=== PATIENT | female | born 1950 | race Caucasian/White ===

== ENCOUNTER 2018-02-08 05:25 | Inpatient (IN) ==
[~2018-02-08 05:25] MED LIST: Calcium Chloride Inj 1 GM/10 ML Syringe IV.CONT ONE; DOPamine 800 MG/500 ML Premix 800 MG/500 ML PLAST..BAG IV.CONT ONE; Metoprolol Tartrate 25 MG Tablet PO SCH; Sodium Bicarbonate 8.4% Inj 50 MEQ/50 ML Syringe IV.CONT ONE
[2018-02-08] MEDS ORDERED: Dextrose 50% in Water 50 ML Vial IV.PUSH PRN ×3 (05:49→13:05)
[2018-02-08] MEDS ORDERED: Chlorhexidine 4% Topical 120 APPLIC/120 ML Bottle TOPICAL SCH ×2 (06:00→08:30)
[2018-02-08] MEDS ORDERED: Chlorhexidine Gluconate 2% 1 Pack (2 Cloths) TOPICAL SCH (06:00)
[2018-02-08] MEDS ORDERED: Sodium Chloride 0.9% Irr Bot 1,000 ML, Vancomycin Inj 1,000 MG IRRIGATION SCH ×2 (06:00)
[2018-02-08] MEDS ORDERED: Sodium Chlor 0.9% Inj 77.5 ML, Papaverine Inj 60 MG, Nitroglycerin Inj 100 MCG, dilTIAZ... IRRIGATION SCH ×6 (06:00→08:30)
[2018-02-08] MEDS ORDERED: Heparin 10,000 UNITS/10 ML Vial (for IV use) ONE (08:00)
[2018-02-08] MEDS ORDERED: Calcium Chloride Inj 1 GM/10 ML Syringe ONE (08:00)
[2018-02-08] MEDS ORDERED: Potassium Chlor 40 mEq Premix 40 MEQ/100 ML PIGGYBACK ONE (08:00)
[2018-02-08] MEDS ORDERED: Albumin Human 25% Inj 50 ML IV.SIG ONE (08:03)
[2018-02-08] MEDS ORDERED: Heparin - SQ 10,000 UNITS/ML Vial ONE (08:16)
[2018-02-08] MEDS ORDERED: MethylPREDNISolone Sod Succinate Inj 125 MG/2 ML Vial ONE (08:16)
[2018-02-08] MEDS ORDERED: Insulin Regular (For Infusion) 100 UNIT in Sodium Chlor 0.9% Inj 99 ML IV.CONT PRN ×2 (08:18→13:05)
[2018-02-08] MEDS ORDERED: Vancomycin Inj 1,250 MG in Sodium Chlor 0.9% Inj 250 ML IV.SIG SCH (09:00)
[2018-02-08] MEDS ORDERED: Vancomycin Inj 1,250 MG in Sodium Chlor 0.9% Inj 250 ML IV.SIG ONE (09:00)
[2018-02-08] MEDS ORDERED: Dexmedetomidine Inj 200 MCG/2 ML Vial IV.CONT ONE (12:00)
[2018-02-08] MEDS ORDERED: Protamine Sulfate Inj 250 MG/25 ML Vial IV.CONT ONE (12:00)
[2018-02-08] MEDS ORDERED: Heparin - SQ 10,000 UNITS/ML Vial OTHER ONE (12:00)
[2018-02-08] MEDS ORDERED: Phenylephrine/NS 1000 MCG/10ML Syringe IV.PUSH ONE (12:00)
[2018-02-08] MEDS ORDERED: RESP: Racemic Epinephrine 2.25% 0.5 ML Neb NEB PRN (13:05)
[2018-02-08] MEDS ORDERED: Clevidipine Inj 25 MG/50 ML VIAL IV.CONT PRN (13:05)
[2018-02-08] MEDS ORDERED: Post-op Orders (for Pharmacy) OTHER STA (13:05)
[2018-02-08] MEDS ORDERED: hydrALAZINE HCl Inj 20 MG/ML Vial IV.PUSH PRN (13:05)
[2018-02-08] MEDS ORDERED: Dexmedetomidine Inj 200 MCG in Sodium Chlor 0.9% Inj 48 ML IV.CONT PRN (13:05)
[2018-02-08] MEDS ORDERED: fentaNYL Citrate Inj 100 MCG/2 ML Ampul IV.PUSH PRN (13:05)
[2018-02-08] MEDS ORDERED: Metoprolol Inj 5 MG/5 ML Vial IV.PUSH PRN (13:05)
[2018-02-08] MEDS ORDERED: Calcium Chloride Inj 1 GM in Sodium Chlor 0.9% Inj 100 ML IV.SIG PRN (13:05)
[2018-02-08] MEDS ORDERED: Calcium Chloride Inj 1 GM/10 ML Syringe IV.PUSH PRN (13:05)
[2018-02-08] MEDS ORDERED: Albumin Human 5% Inj 250 ML IV.SIG PRN (13:05)
[2018-02-08] MEDS ORDERED: Potassium Chlor 20 mEq Premix 20 MEQ/100 ML PIGGYBACK IV.SIG PRN ×2 (13:05)
[2018-02-08] MEDS ORDERED: Magnesium Sulfate Inj 2 GM in Sodium Chlor 0.9% Inj 96 ML IV.SIG PRN ×4 (13:05)
--- NOTE | 2018-02-08 13:22 | P.OP ---
- Preoperative Diagnosis (1) Aortic stenosis (2) CAD (coronary artery disease) (3) Diastolic heart failure - Postoperative Diagnosis (1) Aortic stenosis (2) CAD (coronary artery disease) (3) Diastolic heart failure Date of procedure: 02/08/18 Procedure: AVR with a 21 Intuity tissue valve CABG x 1 SNEED to LAD BROOKS Implants: 21 Intuity tissue valve Anesthesia: GETA Surgeon: Natalie Gold MD Photo Mask Inspector: Peggy Delgado Pathology: other (aortic valve fragments) Operation and Findings: Cross-clamp time 64 minutes Cardiopulmonary bypass time 89 minutes Drains 36 Slovak mediastinum and 32 Slovak left pleural chest tubes Findings: The patient had a heavily calcified aortic valve with fusion of the right and left cusps. The LAD target was deeply intramyocardial. At the conclusion of the procedure, intraoperative BROOKS showed a well-seated aortic valve with no perivalvular leaks. Left ventricular function was normal. Disposition: The patient was transferred to the CVICU in stable, but guarded condition. Operation in detail: After adequate general anesthesia, the patient was prepped and draped in the usual manner. A median sternotomy was performed and electrocautery was used to obtain hemostasis. Left internal mammary artery was procured as a pedicle from the 7th ribs to the 1st rib in the usual manner. The pericardium was opened and the distal mammary artery was instrumented for anastomosis after adequate heparinization for cardiopulmonary bypass. The heart was instrumented for cardiopulmonary bypass in the usual manner. Antegrade Custodiol cardioplegia was used. The left ventricle was vented through the right superior pulmonary vein. The patient was placed on cardiopulmonary bypass and LAD was intramyocardial. An aortic cross-clamp was applied and the heart was arrest is using cold Custodiol antegrade cardioplegia. After adequate arrest , the distal LAD was opened with a [place] blade and found to be a 1-1/2 millimeters good. The left internal mammary artery was approximated to the LAD using a running 7 0 Prolene suture. The pedicle was tacked to the epicardium using interrupted 5 0 silk suture. The aorta was vented and opened above the sinotubular ridge. The valve was found to be heavily calcified. Aortic valve was excised sharply and the annulus was decalcified using rongeurs. The LV was copiously irrigated. The annulus was sized to a 21 Intuity bioprosthetic valve which was seated using interrupted 2-0 Tycron sutures and balloon deployed. After seating the valve and securing the sutures, the aorta was repaired in 2 layers using running 4-0 Prolene suture. The patient was placed in steep Trendelenburg position and received a hotshot doses of warm blood cardioplegia. The aorta and left ventricle were vented and the aortic cross- clamp was removed for a total cross-clamp time of 64 minutes. The heart resumed a bradycardic rhythm which eventually converted to a sinus rhythm after several minutes. The heart was filled allowed to eject. The aortic valve replacement was then assessed by intraoperative BROOKS. The valve was found to be well seated with no perivalvular leak. Left ventricular function was noted to be normal. The patient was weaned from cardiopulmonary bypass for total bypass run of 89 minutes. Protamine was administered to reverse the heparin and all cannulae were removed without incident. A 36 Slovak mediastinal/ 32 Slovak left pleural chest tubes were positioned and each was secured to the skin with a 0 silk suture. The operative field was then examined again for hemostasis which was obtained using electrocautery. The wound was then closed in layers by approximating the sternal tables with interrupted number 6 stainless steel wires following which the presternal fashion was approximately around a 1. PDS suture. The wound was copiously irrigated. The subcutaneous tissue was approximated using a running 2-0 Vicryl suture and the skin was approximated with running 4-0 Monocryl subcuticular stitch. All sponge and instrument counts were correct at the close of the procedure and the patient was transported the CVICU in stable, but guarded condition. Natalie Gold M.D., F.A.C.C., F.A.C.S.
--- NOTE | 2018-02-08 14:19 | XR ---
EXAM DATE: 02/08/2018 2:12 PM EDT AGE/SEX: 67 years / Female INDICATIONS: Post CABG CLINICAL DATA: This is the patient's subsequent encounter. Patient reports that signs and symptoms h ave been present for 2 days and indicates a pain score of Nonresponsive. MEDICAL/SURGICAL HISTORY: . Hypothyroidism. Anxiety. Aortic stenosis. Hyperlipidemia. Thyroid cancer None. COMPARISON: [facility] – [place], CHEST 1V SINGLE AP, 02/02/2018. . FINDINGS: A single AP view of the chest demonstrates the lungs to be symmetrically aerated without evidence of mass, infiltrate or effusion. Status post CABG. Mediastinal and left-sided chest tube. No pneumothora x. Right jugular central line with tip at the cavoatrial junction. Endotracheal tube with tip 4.5 cm above the blu. Nasogastric tube with tip in stomach. The cardiomediastinal contours are unremarkab le. Osseous structures are intact. CONCLUSION: Status post CABG with support lines and tubes as described above. Electronically signed by: Rico Tanner MD 02/08/2018 2:18 PM EDT
[2018-02-08] MEDS ORDERED: fentaNYL Citrate Inj 250 MCG/5 ML Ampul ONE (14:30)
[2018-02-08] MEDS ORDERED: Albumin Human 5% Inj 250 ML IV.SIG ONE (14:39)
[2018-02-08] MEDS ORDERED: DOPamine 800 MG/500 ML Premix 800 MG/500 ML PLAST..BAG IV.CONT PRN (15:10)
[2018-02-08] MEDS ORDERED: Hydrocortisone Sod Succinate 100 MG Vial ONE (15:20)
[2018-02-08 15:29] LABS: Activated Partial Thrombo Time 28.9 sec (24.3-30.1); INR 1.4 Ratio
[2018-02-08] MEDS: Phenylephrine Inj 40 MG in Dextrose 5% in Water Inj 496 ML IV.CONT PRN ×2 (15:30)
--- NOTE | 2018-02-08 15:30 | P.PNCV ---
- Note Subjective/Hospital Course: A 67-year-old female initially seen 02/02/18 with history of known heart murmur for a number of years, had a new primary care physician and told the nurse practitioner that she apparently had a murmur and they felt that it was more prominent so they sent her for an echocardiogram. The echocardiogram showed severe aortic stenosis with a valve mean gradient of 84 mmHg, aortic valve area 0.52, mild tricuspid valve regurgitation and mild mitral valve regurgitation. Ejection fraction is 60%. She underwent cardiac catheterization for further evaluation. The proximal LAD was 75% stenosed, the circumflex 20%. We were consulted to evaluate for coronary artery bypass graft x 1, possibly 2, with aortic valve replacement. PAST MEDICAL HISTORY: Includes hypertension, hyperlipidemia, anxiety, history of thyroid cancer. 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 02/08 pt electively admitted surgery: AVR with a 21 Intuity tissue valve, CABG x 1, SNEED to LAD, BROOKS Objective: Vital Signs - 24 hr 02/08/18 06:20 02/08/18 13:04 02/08/18 13:50 Temperature 98.1 F 98.8 F Pulse Rate 68 71 Respiratory Rate 18 10 L 11 L Blood Pressure 118/76 105/55 L Pulse Oximetry 94 L 100 98 02/08/18 14:00 02/08/18 14:15 02/08/18 14:22 Temperature 98.7 F Pulse Rate 68 71 Respiratory Rate 14 Blood Pressure 106/50 L Pulse Oximetry 99 99 Labs: Laboratory Results - last 12 hr 02/08/18 02/08/18 02/08/18 06:00 06:00 09:59 Blood Type O Positive Blood Type Recheck Not needed Antibody Screen Negative MTS Gel Crossmatch See Detail Bld Prod Order Comment
[2018-02-08] MEDS: DOBUTamine 250 MG/250 ML Premx 250 MG/250 ML BAG IV.CONT SCH (16:00)
[2018-02-08] MEDS ORDERED: Vasopressin Inj 40 UNIT in Dextrose 5% in Water Inj 98 ML IV.CONT PRN ×2 (16:08)
--- NOTE | 2018-02-08 16:20 | XR ---
EXAM DATE: 02/08/2018 4:09 PM EDT AGE/SEX: 67 years / Female INDICATIONS: Post CABG CLINICAL DATA: This is the patient's subsequent encounter. Patient reports that signs and symptoms h ave been present for 1 day and indicates a pain score of Nonresponsive. MEDICAL/SURGICAL HISTORY: . Hypothyroidism. Anxiety. Aortic stenosis. Hyperlipidemia. Thyroid c ancer None. COMPARISON: [facility] – [place], CHEST 1V SINGLE AP, 02/08/2018. . FINDINGS: A single AP view of the chest demonstrates previous CABG. Mediastinal and left-sided chest tubes are stable. Right jugular line, nasogastric tube and endotracheal tube stable in position. No pneumothora x. Lungs relatively clear. The cardiomediastinal contours are unremarkable. Osseous structures are intact. CONCLUSION: Status post CABG. No change. Electronically signed by: Rico Tanner MD 02/08/2018 4:19 PM EDT
[2018-02-08 16:23] LABS: VBG Base Excess -3.5 mmol/L (-2-2); VBG Blood Gas Oxygen Content 12.7 Vol % (9.0-17.0); VBG PCO2 66 mmHG (44-48); VBG PH 7.18 (7.360-7.400); VBG PO2 56 mmHG (35-40)
--- NOTE | 2018-02-08 16:31 | P.PNCV ---
- Note Subjective/Hospital Course: A 67-year-old female initially seen 02/02/18 with history of known heart murmur for a number of years, had a new primary care physician and told the nurse practitioner that she apparently had a murmur and they felt that it was more prominent so they sent her for an echocardiogram. The echocardiogram showed severe aortic stenosis with a valve mean gradient of 84 mmHg, aortic valve area 0.52, mild tricuspid valve regurgitation and mild mitral valve regurgitation. Ejection fraction is 60%. She underwent cardiac catheterization for further evaluation. The proximal LAD was 75% stenosed, the circumflex 20%. We were consulted to evaluate for coronary artery bypass graft x 1, possibly 2, with aortic valve replacement. PAST MEDICAL HISTORY: Includes hypertension, hyperlipidemia, anxiety, history of thyroid cancer. 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 02/08 pt electively admitted surgery: AVR with a 21 Intuity tissue valve, CABG x 1, SNEED to LAD, BROOKS 16:20 Called to see patient at approximately 1500 for acute hypotensive episode. She had a respiratory acidosis when she arrived from the OR which has not completely resolved. I emergently Called Dr. Du for a consultation and have been actively resuscitating her subsequently. She has required pressors and does not have a pericardial effusion or any finding which warrants returning her to the OR. I did call the OR emergently and have the CVOR on standby until she is more stable or needs to return to the OR. I suspect she had a hemodynamic spiral with low BP and relatively low coronary perfusion pressure in the face of marked LVH and now, the absence of aortic stenosis. She has become more stable in the last 15-20 minutes. If she has further compromise, I plan toplace a IABP +/-, BROOKS, and possible re-explore her. I have communicated all this with her family. Objective: Vital Signs - 24 hr 02/08/18 06:20 02/08/18 13:04 02/08/18 13:50 Temperature 98.1 F 98.8 F Pulse Rate 68 71 Respiratory Rate 18 10 L 11 L Blood Pressure 118/76 105/55 L Pulse Oximetry 94 L 100 98 02/08/18 14:00 02/08/18 14:15 02/08/18 14:22 Temperature 98.7 F Pulse Rate 68 71 Respiratory Rate 14 Blood Pressure 106/50 L Pulse Oximetry 99 99 02/08/18 15:55 Temperature Pulse Rate 134 H Respiratory Rate 14 Blood Pressure Pulse Oximetry Labs: Laboratory Results - last 12 hr 02/08/18 02/08/18 02/08/18 06:00 06:00 09:59 PT INR APTT Fibrinogen Blood Type O Positive Blood Type Recheck Not needed Antibody Screen Negative MTS Gel Crossmatch See Detail Bld Prod Order Comment 02/08/18 02/08/18 02/08/18 14:40 14:40 15:42 PT 14.0 H INR 1.4 APTT 28.9 Fibrinogen 144 L Blood Type Blood Type Recheck Antibody Screen MTS Gel Crossmatch See Detail Bld Prod Order Comment Imaging: Chest X-Ray 02/08/18 15:52 CONCLUSION: Status post CABG. No change. Cardiovascular: Currently, RRR with no murmurs Telemetry: aberrant SVT with conversion to sinus rhythm. Pulmonary: few crackles bilat Incision: dry and intact CT: 330ml since returning from the OR Continue hemodynamic support Vent wean as tolerated Critical care management per Dr. uD Return to OR if indicated.
--- NOTE | 2018-02-08 16:57 | P.CONCC ---
History of Present Illness Service: critical care Consult date: 02/08/18 Requesting Physician: Natalie Gold Reason for Consult: Severe refractory shock Primary Care Provider: Frank Jacobsen MD Chief Complaint: Post CABG and AVR, now with refractory shock History of Present Illness: A 67-year-old female with history of known heart murmur, COPD, hypertension, hyperlipidemia, anxiety, history of thyroid cancer who was seen by CTS for CABG and AVR. Her Echo showed severe aortic stenosis with a valve mean gradient of 84 mmHg, aortic valve area 0.52, EF is 60%. Cardiac catheterization showed proximal LAD 75% stenosed. She was electively admitted today and underwent AVR with a 21 Intuity tissue valve, CABG x 1, SNEED to LAD. Intraoperatively was hemodynamically stable per Dr. Haji I was called emergently to the CV ICU at [address] Haji as the patient was profoundly hypotensive. I immediately evaluated the patient, she was already started on norepinephrine. On my arrival patient was profoundly hypotensive and had already received 3 L of IV fluid boluses. ABG showed combined predominantly respiratory acidosis, but also and metabolic acidosis. Patient was given 2 Amps of bicarb and total 2 g of IV calcium. Based on ABG hemoglobin of 7.9, patient was given 2 units of PRBC. Continues to be hypotensive started on dopamine and increased to 10 mcg/kg/min. Levophed was gradually increased to 15 mcg/min. Bedside echo was difficult to visualize wall motion but the EF appeared approximately 40%. There was significant lateral and inferior ST depressions on EKG. Epinephrine was started and increased to 7 mcg/min. Evaluated the LV with regular echocardiogram stat. Mclean were better visualized it appears like LVEF approximately 45% while on multiple pressors, LV cavity was small, no pericardial effusion. We both agreed there is no benefit in reexploration at this time. We did consider IABP if she remains in cardiogenic shock. Further fluid resuscitation carried out. Patient started to stabilize and to avoid continuous tachycardia epinephrine was started to be weaned off. A slow bolus of amiodarone 150 mg over 1 hour was started. Review of Systems unobtainable due to endotracheal tube PMFSH - History History Provided By: Patient - Medical / Surgical Hx Neg / Unobtainable Medical Problems Denied: Unable to Obtain - Medical History Medical History: Medical History (Last Updated 02/02/18 @ 07:14 by Cesia Tovar RN) Anxiety Aortic stenosis HLD (hyperlipidemia) Hypothyroid Thyroid cancer - Tobacco History Tobacco Use In Past 30 Days: Yes Smoking Status: Current every day smoker Tobacco Type: Cigarettes - Alcohol History How Often Do You Have a Drink Containing Alcohol: Never - Substance Use History Substance History: No History of Abuse - Travel History Recent Travel in the [facility] Within the Last 8 Weeks: No Medications and Allergies Active Medications: Active Medications Albuterol (Duoneb Neb (Prn)) 1 ampul NEB Q2HR NEB PRN PRN Reason: WHEEZING Last Admin: 02/08/18 16:45 Dose: 1 ampul Albuterol (Duoneb Neb (Keyla)) 1 ampul NEB Q6HR NEB KEYLA Last Admin: 02/08/18 15:52 Dose: 1 ampul Alprazolam (Xanax) 0.5 mg PO BID KEYLA Aspirin (Aspirin Chew) 81 mg PO DAILY KEYLA Aspirin (Ecotrin) 81 mg PO DAILY KEYLA Calcium Chloride (Calcium Chloride Inj) 0.5 gm IV.PUSH UNSCH PRN PRN Reason: SEE LABEL COMMENTS Chlorhexidine Gluconate (Hibiclens 4% Topical) 1 applicatio TOPICAL E[employer] [facility] Stop: 02/14/18 05:49 Chlorhexidine Gluconate (Chlorhexidine 2% Cloth) 3 pack TOPICAL [employer] [facility] Stop: 02/11/18 05:48 Last Admin: 02/08/18 05:30 Dose: 3 pack Sodium Chloride 77.5 ml/Papaverine HCl 60 mg/Nitroglycerin 100 mcg/Diltiazem HCl 100 mg 0 ml IRRIGATION [employer] [facility] Stop: 02/14/18 05:49 Last Admin: 02/08/18 11:02 Dose: 1 irrig.soln Sodium Chloride 1,000 ml/ (Vancomycin HCl 1,000 mg) 0 ml IRRIGATION [employer] [facility] Stop: 02/14/18 05:50 Dextrose (D50w Vial) 50 ml IV.PUSH UNSCH PRN PRN Reason: PER HYPOGLYCEMIA PROTOCOL Dextrose (D50w Vial) 50 ml IV.PUSH UNSCH PRN PRN Reason: PER HYPOGLYCEMIA PROTOCOL Epinephrine (Racepinephrine 2.25% Neb) 0.5 ml NEB DAILY NEB PRN PRN Reason: STRIDOR Fentanyl Citrate (Fentanyl Inj) 25 mcg IV.PUSH Q1H PRN PRN Reason: BREAKTHROUGH PAIN Hydralazine HCl (Apresoline Inj) 10 mg IV.PUSH Q4H PRN PRN Reason: SEE LABEL COMMENTS Lactated Ringer's (Lr 1000 Ml Inj) 1,000 mls @ 30 mls/hr IV.SIG .Q24H KEYLA Stop: 02/09/18 16:19 Last Infusion: 02/08/18 09:30 Dose: Infused Acetaminophen (Ofirmev Inj) 1,000 mg in 100 mls @ 400 mls/hr IV.SIG Q6H KEYLA Stop: 02/09/18 08:14 Albumin Human (Buminate 5% Inj) 250 mls @ 250 mls/hr IV.SIG UNSCH PRN PRN Reason: SEE LABEL COMMENTS Calcium Chloride 1 gm/ Sodium (Chloride) 110 mls @ 100 mls/hr IV.SIG PRN PRN PRN Reason: SEE LABEL COMMENTS Clevidipine (Cleviprex Inj) 25 mg in 50 mls @ 2 mls/hr IV.CONT TITRATE PRN; Protocol PRN Reason: Per protocol Dexmedetomidine HCl 200 mcg/ (Sodium Chloride) 50 mls @ 4.06 mls/hr IV.CONT TITRATE PRN; Protocol PRN Reason: Per Protocol Insulin Human Regular 100 unit (/ Sodium Chloride) 100 mls @ 3 mls/hr IV.CONT TITRATE PRN; Protocol PRN Reason: See Protocol Lactated Ringer's (Lr 1000 Ml Inj) 500 mls @ 500 mls/hr IV.SIG .Q1H PRN PRN Reason: SEE LABEL COMMENTS Magnesium Sulfate Inj 2 gm/ (Sodium Chloride) 100 mls @ 50 mls/hr IV.SIG PRN PRN PRN Reason: SEE LABEL COMMENTS Magnesium Sulfate Inj 2 gm/ (Sodium Chloride) 100 mls @ 50 mls/hr IV.SIG PRN PRN PRN Reason: SEE LABEL COMMENTS Potassium Chloride (Kcl 20 Meq Premix Inj) 20 meq in 100 mls @ 50 mls/hr IV.SIG PRN PRN PRN Reason: SEE LABEL COMMENTS Potassium Chloride (Kcl 20 Meq Premix Inj) 20 meq in 100 mls @ 50 mls/hr IV.SIG PRN PRN PRN Reason: SEE LABEL COMMENTS Vancomycin HCl 1,000 mg/ (Sodium Chloride) 250 mls @ 250 mls/hr IV.SIG Q12H KEYLA Stop: 02/09/18 14:59 Potassium Chloride (Kcl 20 Meq Premix Inj) 20 meq in 100 mls @ 50 mls/hr IV.SIG PRN PRN PRN Reason: SEE LABEL COMMENTS Dopamine HCl/Dextrose (Dopamine 800 Mg/500 Ml Premix) 800 mg in 500 mls @ 9.146 mls/hr IV.CONT TITRATE PRN; Protocol PRN Reason: Per Protocol Dobutamine HCl/Dextrose (Dobutamine 250 Mg/250 Ml Premx) 250 mg in 250 mls @ 12.195 mls/hr IV.CONT .[id number] KEYLA Norepinephrine Bitartrate (Levophed-Dextrose 4 Mg/250 Ml Drip) 4 mg in 250 mls @ 7.5 mls/hr IV.SIG TITRATE PRN; Protocol PRN Reason: Per Protocol Vasopressin 40 unit/ Dextrose 100 mls @ 1.5 mls/hr IV.CONT TITRATE PRN; Protocol PRN Reason: Per Protocol Phenylephrine HCl 40 mg/ (Dextrose) 500 mls @ 30 mls/hr IV.CONT TITRATE PRN; Protocol PRN Reason: Per Protocol Levothyroxine Sodium (Synthroid) 25 mcg PO DAILY@0600 [facility] Metoprolol Tartrate (Lopressor Inj) 2.5 mg IV.PUSH Q1H PRN PRN Reason: SEE LABEL COMMENTS Ondansetron HCl (Zofran Inj) 4 mg IV.PUSH Q6H PRN PRN Reason: NAUSEA OR VOMITING Oxycodone/Acetaminophen (Percocet 5/325 Mg) 1 tab PO Q3H PRN PRN Reason: PAIN SCALE 1 TO 5 Pantoprazole Sodium (Protonix) 40 mg PO DAILY@06 [facility] Phenylephrine HCl (Neosynephrine Inj) 0.1 mg IV.PUSH UNSCH PRN PRN Reason: SEE LABEL COMMENTS Potassium Chloride (K-Dur) 20 meq PO UNSCH PRN PRN Reason: SEE LABEL COMMENTS Potassium Chloride (K-Dur) 40 meq PO UNSCH PRN PRN Reason: SEE LABEL COMMENTS Povidone Iodine (Betadine 5% Antisepsis Kit) 1 applicatio EACH NARE [employer] OPERATOR [facility] Stop: 02/11/18 05:48 Last Admin: 02/08/18 06:00 Dose: 1 applicatio Pravastatin Sodium (Pravachol) 20 mg PO HS [facility] Sodium Bicarbonate (Sodium Bicarbonate 8.4% Inj) 50 meq IV.PUSH UNSCH PRN PRN Reason: SEE LABEL COMMENTS Sodium Bicarbonate (Sodium Bicarbonate 8.4% Inj) 100 meq IV.PUSH UNSCH PRN PRN Reason: SEE LABEL COMMENTS Sodium Chloride (Ns Flush) 2 ml IV.FLUSH BID KEYLA Sodium Chloride (Ns Flush) 2 ml IV.FLUSH PRN PRN PRN Reason: FLUSH AFTER USING IV ACCESS Sodium Chloride (Ns Flush) 2 ml IV.FLUSH BID KEYLA Sodium Chloride (Ns Flush) 2 ml IV.FLUSH PRN PRN PRN Reason: FLUSH AFTER USING IV ACCESS Terbutaline Sulfate (Brethine Inj) 1 mg SQ UNSCH PRN PRN Reason: For Extravasation Vitamin D (Vitamin D3) 1,000 unit PO DAILY KEYLA Allergies Allergy/AdvReac Type Severity Reaction Status Date / Time bee venom protein (honey bee) Allergy Edema, Verified 02/08/18 06:03 [Bee sting] Localized metronidazole [From Flagyl] Allergy Hives Verified 02/08/18 06:03 Penicillins Allergy Hives Verified 02/08/18 06:03 Home Medications Medication Instructions Recorded Confirmed Type alprazolam 0.5 mg PO BID 02/02/18 02/08/18 History aspirin [Aspir-81] 81 mg PO DAILY 02/02/18 02/08/18 History atenolol 50 mg PO DAILY 02/02/18 02/08/18 History cholecalciferol (vitamin D3) 1,000 unit PO DAILY 02/02/18 02/08/18 History [Vitamin D3] hydrochlorothiazide 25 mg PO DAILY 02/02/18 02/08/18 History levothyroxine 25 mcg PO DAILY 02/02/18 02/08/18 History levothyroxine 200 mcg PO DAILY 02/02/18 02/08/18 History lovastatin 20 mg PO HS 02/02/18 02/08/18 History potassium mcg PO EVERY OTHER DAY 02/02/18 02/02/18 History Physical Exam Vital signs: Vital Signs 02/08/18 06:20 02/08/18 13:04 02/08/18 13:50 Temperature 98.1 F 98.8 F Pulse Rate 68 71 Respiratory Rate 18 10 L 11 L Blood Pressure 118/76 105/55 L Pulse Oximetry 94 L 100 98 02/08/18 14:00 02/08/18 14:15 02/08/18 14:22 Temperature 98.7 F Pulse Rate 68 71 Respiratory Rate 14 Blood Pressure 106/50 L Pulse Oximetry 99 99 02/08/18 15:55 02/08/18 16:46 Temperature Pulse Rate 134 H 63 Respiratory Rate 14 18 Blood Pressure Pulse Oximetry Intake & Output 02/07/18 02/08/18 02/08/18 18:59 06:59 18:59 Intake Total 5547.5 / 5547.5 Output Total 2049 / 2049 Balance 3497.5 / 3497.5 Weight 81.3 kg Intake: IV 1262.5 / 1262.5 LR 1000 mL Inj 1,000 ML @ 30 1000 / 1000 mls/hr IV.SIG .Q24H KEYLA Rx#: [id number] Vancomycin Inj 1,250 MG In NS 262.5 / 262.5 Inj 250 ML @ 250 mls/hr IV.SIG ONCE ONE Rx#:[id number] Anesthesia Amount 1700 / 1700 Intake (Blood Product) Amt 1085 / 1085 Plt Pheresis B Leukoreduced 285 / 285 Unit [id number] Rbc As-3 Leukoreduced Unit 400 / 400 [id number] Rbc As-3 Leukoreduced Unit 400 / 400 [id number] Cell Saver Amount 1500 / 1500 Output: Estimated Blood Loss 1500 / 1500 Urine Amount (Catheter) 550 / 550 Indwelling Temp Sensing 550 / 550 Catheter Other: Weight On Admission 81.3 kg Narrative: GENERAL: Post CABG patient who is on the ventilator minimally responsive profoundly hypotensive HEENT: Shows pupils reactive to light and accommodation. Orotracheally intubated NECK: Right-sided introducer in place LUNGS: Air entry equal with bilateral expiratory wheezing. Chest tube with sanguinous output CARDIOVASCULAR: Profoundly hypotensive currently on Levophed at 15 mcg/min, dopamine 5 mcg/kg/min, epinephrine 5 mcg/min. Midline CABG incision dressing, wound VAC intact ABDOMEN: Nontender, nondistended. EXTREMITIES: Good peripheral pulses. NEUROLOGIC: Waxing and waning level of consciousness. Patient is responsive when MAP is above 65 - Urinary Catheter Management Indwelling Temp Sensing Catheter Cath placed during this visit: yes Reason for continuing: Hourly intake/output Insertion date: 02/08/18 Insertion time: 09:06 Septic Shock Reassessment Septic shock perfusion: reassessment completed Assessment and Plan - Assessment and Plan Plan: ASSESSMENT: Profound refractory shock Acute hypercarbic respiratory failure Acute COPD exacerbation Respiratory acidosis Anemia requiring transfusion Atrial fibrillation with rapid ventricular response Status post CABG and AVR PLAN: NEURO: -No sedation or pain medication at this time due to profound hypotension RESP: -[id number] breathing treatments with DuoNeb x3 -DuoNeb every 4 hours scheduled and as needed -Hemodynamically unstable at this time for SBT CV: -Normal saline IV fluids 4L bolus, 2 units of blood, 2 of albumin -Currently on Levophed 50 mcg/min, dopamine 10 mcg/kg/min, epinephrine 7 mcg/kg/ min -Currently in atrial fibrillation with RVR heart rate up to 140s -Start Ehsan-Synephrine to attempt wean epinephrine, in an attempt to avoid tachycardia -Patient's LV appeared empty with thick mclean EF approximately 45% -Continue fluid resuscitation -Amiodarone 150 mg slow bolus over 1 hour and continued infusion, to convert to sinus rhythm -We consider reexploration and IABP but it appears like her hypotension due to combination of severe respiratory acidosis, and hypovolemia on underlying hypertrophic cardiomyopathy GI: -N.p.o., IV Protonix : -Monitor renal function closely. Chaudhari catheter. ID: -Maggy operative antibiotics per CTS HEME: -Monitor CBC, coags ENDO: -Electrolyte replacement per protocol -Insulin per CVICU protocol Central line and art line placed in the OR CC time 78 min Code Status: Full Discussed Condition With: Dr. Holm, bedside RN
[2018-02-08] MEDS: Insulin Regular (For Infusion) 100 UNIT in Sodium Chlor 0.9% Inj 99 ML IV.CONT PRN (17:00)
[2018-02-08] MEDS ORDERED: Amiodarone Inj 150 MG in Dextrose 5% in Water Inj 97 ML IV.SIG ONE ×2 (17:10)
[2018-02-08] MEDS ORDERED: Mag Sulf 1 gm/100 ml Premix 100 ML IV.SIG ONE (19:00)
[2018-02-08] MEDS: Vancomycin Inj 1,000 MG in Sodium Chlor 0.9% Inj 250 ML IV.SIG SCH (19:00)
--- NOTE | 2018-02-08 19:15 | ECHRPT ---
Indication: SHORTNESS OF BREATH CONCLUSIONS This was only a limited echo. Poor endocardial visualization and only 4 chamber view obtained. LVEF is 40-55%The right ventricular size is normal. The right ventricular systoilc function is normal. LA size was not measured BP: / HR: Rhythm: Atrial fibrillation Technical Quality:Poor FINDINGS LEFT VENTRICLE Poor endocardial visualization and only 4 chamber view obtained. LVEF is 40-55% RIGHT VENTRICLE The right ventricular size is normal. The right ventricular systoilc function is normal. LEFT ATRIUM LA size was not measured RIGHT ATRIUM The right atrial size is normal. PERICARDIUM No pericardial effusion. Suhas Anderson MD (Electronically Signed) Final Date:08 February 2018 19:15
[2018-02-08] MEDS: Potassium Chlor 20 mEq Premix 20 MEQ/100 ML PIGGYBACK IV.SIG PRN (20:50)
[2018-02-08] MEDS ORDERED: ALPRAZolam 0.5 MG Tablet PO SCH (21:00)
[2018-02-08] MEDS ORDERED: SODIUM CHLOR 0.9% IV.CONT PRN (22:45)
[2018-02-08] MEDS ORDERED: DEXMEDETOMIDINE IV.CONT PRN (22:45)
[2018-02-09] MEDS: Vancomycin Inj 1,000 MG in Sodium Chlor 0.9% Inj 250 ML IV.SIG SCH ×2 (02:00→14:56)
[2018-02-09] MEDS: Potassium Chlor 20 mEq Premix 20 MEQ/100 ML PIGGYBACK IV.SIG PRN ×2 (03:28→04:32)
[2018-02-09] MEDS: Insulin Regular (For Infusion) 100 UNIT in Sodium Chlor 0.9% Inj 99 ML IV.CONT PRN (04:32)
[2018-02-09 05:17] LABS: Hematocrit 38.3 % (35.0-46.0); Hemoglobin 13.3 gm/dL (11.6-15.3); Mean Corpuscular HGB Conc 34.8 % (32.0-36.0); Mean Corpuscular Hemoglobin 31.3 pg (27.0-34.0); Mean Corpuscular Volume 90.1 fL (80.0-100.0); Mean Platelet Volume 11.1 fL (7.0-11.0); Platelet Count 90 th/mm3 (150-450); Red Blood Count 4.25 mil/mm3 (4.00-5.30); Red Cell Distribution Width 13.4 % (11.6-17.2); White Blood Count 17.1 th/mm3 (4.0-11.0)
[2018-02-09 05:32] LABS: Magnesium 1.9 mg/dL (1.5-2.5); Potassium 4.6 meq/L (3.5-5.1)
[2018-02-09] MEDS ORDERED: Mag Sulf 1 gm/100 ml Premix 100 ML IV.SIG ONE (06:32)
[2018-02-09] MEDS: Phenylephrine Inj 40 MG in Dextrose 5% in Water Inj 496 ML IV.CONT PRN ×2 (08:01)
--- NOTE | 2018-02-09 09:13 | XR ---
EXAM DATE: 02/09/2018 8:43 AM EDT AGE/SEX: 67 years / Female INDICATIONS: Post CABG. CLINICAL DATA: This is the patient's subsequent encounter. Patient reports that signs and symptoms h ave been present for 2 days and indicates a pain score of Nonresponsive. MEDICAL/SURGICAL HISTORY: . Hypothyroidism. Anxiety. Aortic stenosis. Hyperlipidemia. Thyroid c ancer CABG. COMPARISON: [facility], CHEST 1V SINGLE AP, 02/08/2018. . FINDINGS: Endotracheal and nasogastric tubes have been removed. Lungs remain well expanded however mild bibasilar airspace disease has developed. Persistent central interstitial vascular prominence is noted. Left-sided chest tube remains in place. There is no evidence of pneumothorax. CONCLUSION: 1. Interval removal of endotracheal and nasogastric tubes 2. Stable left thoracostomy tube without evidence of pneumothorax 3. New bibasilar airspace disease. 4. Mild central congestion. Electronically signed by: Cy Roa MD 02/09/2018 9:12 AM EDT
[2018-02-09] MEDS ORDERED: Sod Phosphate/Sod Biphosphate (Adult) Enema 133 ML Bottle RECTAL PRN (09:30)
[2018-02-09] MEDS ORDERED: Bisacodyl 10 MG Supp RECTAL PRN (09:30)
[2018-02-09] MEDS ORDERED: Dextrose 50% in Water 50 ML Vial IV.PUSH PRN (09:30)
--- NOTE | 2018-02-09 09:48 | P.PNCV ---
- Note Subjective/Hospital Course: A 67-year-old female initially seen 02/02/18 with history of known heart murmur for a number of years, had a new primary care physician and told the nurse practitioner that she apparently had a murmur and they felt that it was more prominent so they sent her for an echocardiogram. The echocardiogram showed severe aortic stenosis with a valve mean gradient of 84 mmHg, aortic valve area 0.52, mild tricuspid valve regurgitation and mild mitral valve regurgitation. Ejection fraction is 60%. She underwent cardiac catheterization for further evaluation. The proximal LAD was 75% stenosed, the circumflex 20%. We were consulted to evaluate for coronary artery bypass graft x 1, possibly 2, with aortic valve replacement. PAST MEDICAL HISTORY: Includes hypertension, hyperlipidemia, anxiety, history of thyroid cancer. 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 02/08 pt electively admitted surgery: AVR with a 21 Intuity tissue valve, CABG x 1, SNEED to LAD, BROOKS 16:20 Called to see patient at approximately 1500 for acute hypotensive episode. She had a respiratory acidosis when she arrived from the OR which has not completely resolved. I emergently Called Dr. Du for a consultation and have been actively resuscitating her subsequently. She has required pressors and does not have a pericardial effusion or any finding which warrants returning her to the OR. I did call the OR emergently and have the CVOR on standby until she is more stable or needs to return to the OR. I suspect she had a hemodynamic spiral with low BP and relatively low coronary perfusion pressure in the face of marked LVH and now, the absence of aortic stenosis. She has become more stable in the last 15-20 minutes. If she has further compromise, I plan toplace a IABP +/-, BROOKS, and possible re-explore her. I have communicated all this with her family. 02/09 pt extubated at 0500 now on 4 liter 02, remains on Ehsan at 40mcq wean off insulin gtt , had episode of Afib, short burst VTach yesterday on amiodarone gtt, ECG shows new L BBB anteroseptal T wave changes received 2 units PRBC and one mike PLT PLT count 90. CXR with some bilateral lower lobe atelectasis , possible infiltrate left lower lobe Keep in ICU today , Objective: Vital Signs - 24 hr 02/08/18 13:04 02/08/18 13:50 02/08/18 14:00 Temperature 98.8 F 98.7 F Pulse Rate 71 68 Respiratory Rate 10 L 11 L 14 Blood Pressure 105/55 L 106/50 L Pulse Oximetry 100 98 99 02/08/18 14:15 02/08/18 14:22 02/08/18 15:00 Temperature 97.5 F L Pulse Rate 71 59 L Respiratory Rate 14 Blood Pressure 83/49 L Pulse Oximetry 99 98 02/08/18 15:55 02/08/18 16:40 02/08/18 16:46 Temperature Pulse Rate 134 H 63 Respiratory Rate 14 18 18 Blood Pressure Pulse Oximetry 100 02/08/18 17:00 02/08/18 17:41 02/08/18 18:29 Temperature Pulse Rate 64 73 Respiratory Rate 20 20 Blood Pressure Pulse Oximetry 99 02/08/18 19:25 02/08/18 20:00 02/08/18 20:42 Temperature 97.6 F Pulse Rate 70 70 Respiratory Rate 22 9 L 20 Blood Pressure 117/64 Pulse Oximetry 99 99 97 02/08/18 21:00 02/08/18 23:12 02/08/18 23:30 Temperature Pulse Rate 68 66 63 Respiratory Rate 20 Blood Pressure Pulse Oximetry 99 02/09/18 00:00 02/09/18 03:55 02/09/18 04:00 Temperature 97.5 F L 97.9 F Pulse Rate 65 67 66 Respiratory Rate 20 28 H 26 H Blood Pressure 118/66 102/58 L Pulse Oximetry 99 99 99 02/09/18 05:10 02/09/18 05:40 02/09/18 07:00 Temperature 99 F Pulse Rate 68 71 Respiratory Rate 16 Blood Pressure 92/51 L Pulse Oximetry 99 93 L 02/09/18 07:58 Temperature Pulse Rate Respiratory Rate 16 Blood Pressure Pulse Oximetry GENERAL: A&O x 3 SKIN: Warm and dry. prevena dressing to chest , HEAD: Normocephalic. EYES: No scleral icterus. No injection or drainage. NECK: Supple, trachea midline. No JVD or lymphadenopathy. CARDIOVASCULAR: Regular rate and rhythm without murmurs, gallops, or rubs. general edema RESPIRATORY: Breath sounds equal bilaterally. No accessory muscle use. chest tube to wall suction, no air leak , diminished in bases GASTROINTESTINAL: Abdomen soft, non-tender, nondistended. MUSCULOSKELETAL: No cyanosis, or edema. BACK: Nontender without obvious deformity. No CVA tenderness. Labs: Laboratory Results - last 12 hr 02/08/18 02/09/18 02/09/18 22:20 00:11 02:46 WBC RBC Hgb Hct MCV MCH MCHC RDW Plt Count MPV Sodium Potassium Chloride Carbon Dioxide Anion Gap BUN Creatinine Estimated GFR POC Glucose 140 H 117 H 109 Random Glucose Calcium Magnesium 02/09/18 02/09/18 02/09/18 04:20 04:20 04:20 WBC 17.1 H RBC 4.25 Hgb 13.3 Hct 38.3 MCV 90.1 MCH 31.3 MCHC 34.8 RDW 13.4 Plt Count 90 L MPV 11.1 H Sodium 145 Potassium 4.6 Chloride 112 H Carbon Dioxide 24.0 Anion Gap 9 BUN 13 Creatinine 0.82 Estimated GFR 70 L POC Glucose 149 H Random Glucose 151 H Calcium 8.0 L Magnesium 1.9 02/09/18 02/09/18 02/09/18 06:50 07:20 08:05 WBC RBC Hgb Hct MCV MCH MCHC RDW Plt Count MPV Sodium Potassium Chloride Carbon Dioxide Anion Gap BUN Creatinine Estimated GFR POC Glucose 116 H 129 H 117 H Random Glucose Calcium Magnesium 02/09/18 09:03 WBC RBC Hgb Hct MCV MCH MCHC RDW Plt Count MPV Sodium Potassium Chloride Carbon Dioxide Anion Gap BUN Creatinine Estimated GFR POC Glucose 121 H Random Glucose Calcium Magnesium Result Diagrams: 02/09/18 04:20 02/09/18 04:20 Telemetry: sinus vielak to junctional rhythm / New L BBB - Plan (1) Hypertension Plan: labile BP on pressors (5) Diastolic heart failure Plan: on pressor, s/p volume resuscitation CVP 10, maintain MAP >65 eval for diuresis in am (7) S/P CABG x 1 Plan: on ASA, statin PT/ OOB later this am pulm toileting leave in CVICU today post ECHO 02/08 EF 40%
[2018-02-09] MEDS: ALPRAZolam 0.5 MG Tablet PO PRN ×2 (11:09→23:57)
[2018-02-09] MEDS: Insulin NovoLOG Aspart Correctional Sugar Inj SQ SCH ×3 (11:20→18:48)
--- NOTE | 2018-02-09 11:27 | P.PNCC ---
Subjective Subjective Remarks/Hospital Course: A 67-year-old female with history of known heart murmur, COPD, hypertension, hyperlipidemia, anxiety, history of thyroid cancer who was seen by CTS for CABG and AVR. Her Echo showed severe aortic stenosis with a valve mean gradient of 84 mmHg, aortic valve area 0.52, EF is 60%. Cardiac catheterization showed proximal LAD 75% stenosed. She was electively admitted today and underwent AVR with a 21 Intuity tissue valve, CABG x 1, SNEED to LAD. Intraoperatively was hemodynamically stable per Dr. Haji. Dr. Du was called emergently to the CV ICU at [address] Haji as the patient was profoundly hypotensive. I immediately evaluated the patient, she was already started on norepinephrine. On my arrival patient was profoundly hypotensive and had already received 3 L of IV fluid boluses. ABG showed combined predominantly respiratory acidosis, but also and metabolic acidosis. Patient was given 2 Amps of bicarb and total 2 g of IV calcium. Based on ABG hemoglobin of 7.9, patient was given 2 units of PRBC. Continues to be hypotensive started on dopamine and increased to 10 mcg/kg/min. Levophed was gradually increased to 15 mcg/min. Bedside echo was difficult to visualize wall motion but the EF appeared approximately 40%. There was significant lateral and inferior ST depressions on EKG. Epinephrine was started and increased to 7 mcg/min. Evaluated the LV with regular echocardiogram stat. Mclean were better visualized it appears like LVEF approximately 45% while on multiple pressors, LV cavity was small, no pericardial effusion. We both agreed there is no benefit in reexploration at this time. We did consider IABP if she remains in cardiogenic shock. Further fluid resuscitation carried out. Patient started to stabilize and to avoid continuous tachycardia epinephrine was started to be weaned off. A slow bolus of amiodarone 150 mg over 1 hour was started. 02/09: Acid-base balance corrected overnight. New onset atrial fibrillation around midnight now resolved on amiodarone infusion. Magnesium and potassium acceptable following repletion. Urine output is acceptable and creatinine good at 0.82. She is breathing comfortably following extubation and is in no distress. Objective Vital Signs / I&O: Vital Signs 02/08/18 13:04 02/08/18 13:50 02/08/18 14:00 Temperature 98.8 F 98.7 F Pulse Rate 71 68 Respiratory Rate 10 L 11 L 14 Blood Pressure 105/55 L 106/50 L Pulse Oximetry 100 98 99 02/08/18 14:15 02/08/18 14:22 02/08/18 15:00 Temperature 97.5 F L Pulse Rate 71 59 L Respiratory Rate 14 Blood Pressure 83/49 L Pulse Oximetry 99 98 02/08/18 15:55 02/08/18 16:40 02/08/18 16:46 Temperature Pulse Rate 134 H 63 Respiratory Rate 14 18 18 Blood Pressure Pulse Oximetry 100 02/08/18 17:00 02/08/18 17:41 02/08/18 18:29 Temperature Pulse Rate 64 73 Respiratory Rate 20 20 Blood Pressure Pulse Oximetry 99 02/08/18 19:25 02/08/18 20:00 02/08/18 20:42 Temperature 97.6 F Pulse Rate 70 70 Respiratory Rate 22 9 L 20 Blood Pressure 117/64 Pulse Oximetry 99 99 97 02/08/18 21:00 02/08/18 23:12 02/08/18 23:30 Temperature Pulse Rate 68 66 63 Respiratory Rate 20 Blood Pressure Pulse Oximetry 99 02/09/18 00:00 02/09/18 03:55 02/09/18 04:00 Temperature 97.5 F L 97.9 F Pulse Rate 65 67 66 Respiratory Rate 20 28 H 26 H Blood Pressure 118/66 102/58 L Pulse Oximetry 99 99 99 02/09/18 05:10 02/09/18 05:40 02/09/18 07:00 Temperature 99 F Pulse Rate 68 71 Respiratory Rate 16 Blood Pressure 92/51 L Pulse Oximetry 99 93 L 02/09/18 07:58 02/09/18 09:53 02/09/18 09:56 Temperature Pulse Rate 70 Respiratory Rate 16 18 Blood Pressure Pulse Oximetry 98 Intake & Output 02/08/18 02/09/18 02/09/18 18:59 06:59 18:59 Intake Total 5647.5 / 5647.5 1676 / 1676 Output Total 2049 920 / 920 Balance 3597.5 / 3597.5 756 / 756 Weight 95.5 kg Intake: IV 1362.5 / 1362.5 1676 / 1676 Cordarone Inj 450 MG In D5W Inj 250 / 250 241 ML @ 1 MG/MIN 33.33 mls/hr IV.CONT TITRATE PRN Rx#: [id number] Neosynephrine Inj 40 MG In D5W 476 / 476 Inj 496 ML @ 40 MCG/MIN 30 mls/ hr IV.CONT TITRATE PRN Rx#: [id number] Ofirmev Inj 1,000 mg In 100 ml 100 / 100 200 / 200 @ 400 mls/hr IV.SIG Q6H DENISA Rx# :[id number] LR 1000 mL Inj 1,000 ML @ 30 1000 / 1000 mls/hr IV.SIG .Q24H DENISA Rx#: [id number] Magnesium Sulfate 1 gm/D5W 100 100 / 100 ml Premix 100 ML @ 100 mls/hr IV.SIG NOW ONE Rx#:[id number] KCl 20 mEq Premix Inj 20 meq In 300 / 300 100 ml @ 50 mls/hr IV.SIG PRN PRN Rx#:[id number] Vancomycin Inj 1,000 MG In NS 250 / 250 Inj 250 ML @ 250 mls/hr IV.SIG Q12H DENISA Rx#:[id number] Vancomycin Inj 1,250 MG In NS 262.5 / 262.5 Inj 250 ML @ 250 mls/hr IV.SIG ONCE ONE Rx#:[id number] Oral 0 / 0 Anesthesia Amount 1700 / 1700 Intake (Blood Product) Amt 1085 / 1085 Plt Pheresis B Leukoreduced 285 / 285 Unit [id number] Rbc As-3 Leukoreduced Unit 400 / 400 [id number] Rbc As-3 Leukoreduced Unit 400 / 400 [id number] Cell Saver Amount 1500 / 1500 Output: Emesis 100 / 100 Estimated Blood Loss 1500 / 1500 Urine Amount (Catheter) 550 / 550 560 / 560 Indwelling Temp Sensing 550 / 550 560 / 560 Catheter Chest Tube Drainage 260 / 260 Mediastinal Y Connected 260 / 260 Other: Date of Last Bowel Movement 02/08/18 # Bowel Movements 0 Result Diagrams: 02/09/18 04:20 02/09/18 04:20 Objective Remarks: Physical exam: GENERAL: Post CABG/AVR patient, extubated and breathing comfortably. HEENT: Shows pupils reactive to light and accommodation. Airway widely patent , no obstruction. NECK: Right-sided introducer in place, ventricular temporary pacing wire in place. LUNGS: Comfortable respiratory pattern, no wheezes or crackles. Chest tube with sanguinous output CARDIOVASCULAR: Normotensive with map 65-68 range. Ehsan-Synephrine at 50 mics per minute. Soft systolic murmur at right sternal border. No JVD. ABDOMEN: Nontender, nondistended. Soft, no guarding. EXTREMITIES: Good peripheral pulses. Fingers are pink and warm with trace edema. NEUROLOGIC: Anxious. Alert conversant. Moves 4 limbs to command. Oriented 3. Assessment and Plan - Assessment and Plan Plan: ASSESSMENT: Profound refractory shock, resolved. Acute hypercarbic respiratory failure, resolved. Acute COPD exacerbation, resolved. Respiratory acidosis, resolved. Anemia requiring transfusion Atrial fibrillation with rapid ventricular response, converted to normal sinus rhythm this morning Status post CABG and AVR PLAN: NEURO: -Mild sedation for anxiety. Minimize narcotics. RESP: -As needed treatments with DuoNeb -DuoNeb every 4 hours scheduled and as needed -Incentive spirometry. CV: -Normal saline IV fluids 4L bolus, 2 units of blood, 2 of albumin -Currently on Levophed 50 mcg/min, dopamine 10 mcg/kg/min, epinephrine 7 mcg/kg/ min -Currently in atrial fibrillation with RVR heart rate up to 140s -Start Ehsan-Synephrine to attempt wean epinephrine, in an attempt to avoid tachycardia -Patient's LV appeared empty with thick mclean EF approximately 45% -Continue fluid resuscitation -Amiodarone 150 mg slow bolus over 1 hour and continued infusion, to convert to sinus rhythm - 02/09 -appears well-hydrated and well-perfused. Back in sinus rhythm. GI: -N.p.o., IV Protonix, bedside swallow eval then advance diet : -Monitor renal function closely. Chaudhari catheter. ID: -Maggy operative antibiotics per CTS HEME: -Monitor CBC, coags ENDO: -Electrolyte replacement per protocol, replace magnesium today. -Insulin per CVICU protocol Overall impression: This patient now has much more stable hemodynamics and appears to be fully resuscitated. Her dependence on low-dose Ehsan-Synephrine should resolve with activity and decreased analgesia. Her lungs are clear and she would tolerate additional volume if necessary. We will follow closely.
--- NOTE | 2018-02-09 14:19 | P.DIET ---
Nutritional Evaluation Type of nutrition evaluation: initial Nutrition screening: [facility] [place] comments: Diet Education Objective - Diagnosis CABG - Objective [place] body weight: 145 kg % IBW: 123 Dietitian Reviewed in Medical Record: Current diet, Curent medications, Intake & Output, Labs, Medical history Diet Order: Clear Liquid Objective Comments: s/p AVR, CABG x 1(02/08/18) Assessment Assessment: Pt is s/p AVR, CABG x 1(02/08/18). Patient Navigator to provide education. Please Consult RD if complexities with diet education arises. Recommendations: 1. Patient Navigator to provide education 2. Please Consult RD if complexities with diet education arise
[2018-02-09] MEDS: Amiodarone 200 MG Tablet PO SCH (14:56)
--- NOTE | 2018-02-09 15:43 | ECG ---
Date Performed: 02/08/2018 Time Performed: 15:09:16 PTAGE: 67 years EKG: Junctional rhythm. Left axis deviation Left bundle branch block Marked precordial ST depres corky, CONSIDER ACUTE INFARCT-age Undetermined Anteroseptal ST-T changes suggest myocardial injury/isc hemia Extensive ischemic changes anterolaterally. Prolonged corrcted QT interval. Abnormal ECG PREVIOUS TRACING : 03/01/2018 14.53.12 DOCTOR: Kevin Nazario Interpretating Date/Time 02/09/2018 15:42:14
--- NOTE | 2018-02-09 15:46 | ECG ---
Date Performed: 02/08/2018 Time Performed: 15:47:46 PTAGE: 67 years EKG: Junctional rhythm with prematur atrial contractions verses atrial Fibrillation. Left axis d eviation Anteroseptal ST-T changes may be due to myocardial ischemia Consider inferior myocardial inf arction-age undetermind. Significant anterolateral ischemia. Left anterior fasicular block. Abnormal ECG PREVIOUS TRACING : 02/08/2018 15.09 DOCTOR: Kevin Nazario Interpretating Date/Time 02/09/2018 15:46:00
--- NOTE | 2018-02-09 15:47 | ECG ---
Date Performed: 02/09/2018 Time Performed: 03:59:54 PTAGE: 67 years EKG: Accelerated idioventricular rhythm Left bundle branch block Anteroseptal T wave changes are nonspecific Consider anterolateral ischemia. Abnormal ECG PREVIOUS TRACING : 02/08/2018 15.47 DOCTOR: Kevin Nazario Interpretating Date/Time 02/09/2018 15:46:23
[2018-02-09 16:29] LABS: ABG Base Excess -1.5 mmol/L (-2-2); ABG PCO2 48 mmHg (38-42); ABG PO2 80 mmHG (61-120)
[2018-02-09] MEDS: DOBUTamine 250 MG/250 ML Premx 250 MG/250 ML BAG IV.CONT SCH (16:54)
[2018-02-09] MEDS: Docusate Sodium 100 MG Capsule PO SCH (20:40)
[2018-02-10] MEDS: Insulin NovoLOG Aspart Correctional Sugar Inj SQ SCH ×7 (00:43→21:05)
[2018-02-10] MEDS: Amiodarone 200 MG Tablet PO SCH ×2 (03:00→14:01)
[2018-02-10 04:38] LABS: Baso % (Auto) 0.2 % (0.0-2.0); Hematocrit 37.9 % (35.0-46.0); Hemoglobin 12.8 gm/dL (11.6-15.3); Lymph # (Auto) 1.8 th/mm3 (1.0-4.8); Lymph % (Auto) 9.1 % (9.0-44.0); Mean Corpuscular HGB Conc 33.8 % (32.0-36.0); Mean Corpuscular Hemoglobin 31.3 pg (27.0-34.0); Mean Corpuscular Volume 92.6 fL (80.0-100.0); Mean Platelet Volume 11.1 fL (7.0-11.0); Neut % (Auto) 80.7 % (16.0-70.0); Platelet Count 78 th/mm3 (150-450); Red Blood Count 4.09 mil/mm3 (4.00-5.30); Red Cell Distribution Width 13.7 % (11.6-17.2); White Blood Count 19.8 th/mm3 (4.0-11.0)
[2018-02-10 04:55] LABS: Calcium 7.4 mg/dL (8.5-10.1); Carbon Dioxide 27.8 meq/L (21.0-32.0); Magnesium 1.9 mg/dL (1.5-2.5); Potassium 4.7 meq/L (3.5-5.1)
[2018-02-10 05:13] LABS: Total Protein 4.8 g/dL (6.4-8.2)
[2018-02-10 05:39] LABS: Platelet Morphology Normal (Normal)
[2018-02-10] MEDS: Docusate Sodium 100 MG Capsule PO SCH ×2 (08:56→20:45)
[2018-02-10] MEDS ORDERED: Multivitamin/Minerals Therapeutic Tablet PO SCH (09:00)
[2018-02-10] MEDS ORDERED: Polyethylene Glycol 3350 17 GM Packet PO SCH (09:00)
[2018-02-10] MEDS: DOBUTamine 250 MG/250 ML Premx 250 MG/250 ML BAG IV.CONT SCH (10:10)
[2018-02-10] MEDS ORDERED: Bisacodyl 10 MG Supp RECTAL PRN (11:44)
[2018-02-10] MEDS ORDERED: Dextrose 50% in Water 50 ML Vial IV.PUSH PRN (11:44)
--- NOTE | 2018-02-10 11:55 | P.PNCV ---
- Note CVT: Post Op Day #: 2 Subjective/Hospital Course: A 67-year-old female initially seen 02/02/18 with history of known heart murmur for a number of years, had a new primary care physician and told the nurse practitioner that she apparently had a murmur and they felt that it was more prominent so they sent her for an echocardiogram. The echocardiogram showed severe aortic stenosis with a valve mean gradient of 84 mmHg, aortic valve area 0.52, mild tricuspid valve regurgitation and mild mitral valve regurgitation. Ejection fraction is 60%. She underwent cardiac catheterization for further evaluation. The proximal LAD was 75% stenosed, the circumflex 20%. We were consulted to evaluate for coronary artery bypass graft x 1, possibly 2, with aortic valve replacement. PAST MEDICAL HISTORY: Includes hypertension, hyperlipidemia, anxiety, history of thyroid cancer. 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 02/08 pt electively admitted surgery: AVR with a 21 Intuity tissue valve, CABG x 1, SNEED to LAD, BROOKS 16:20 Called to see patient at approximately 1500 for acute hypotensive episode. She had a respiratory acidosis when she arrived from the OR which has not completely resolved. I emergently Called Dr. Du for a consultation and have been actively resuscitating her subsequently. She has required pressors and does not have a pericardial effusion or any finding which warrants returning her to the OR. I did call the OR emergently and have the CVOR on standby until she is more stable or needs to return to the OR. I suspect she had a hemodynamic spiral with low BP and relatively low coronary perfusion pressure in the face of marked LVH and now, the absence of aortic stenosis. She has become more stable in the last 15-20 minutes. If she has further compromise, I plan toplace a IABP +/-, BROOKS, and possible re-explore her. I have communicated all this with her family. 02/09 pt extubated at 0500 now on 4 liter 02, remains on Ehsan at 40mcq wean off insulin gtt , had episode of Afib, short burst VTach yesterday on amiodarone gtt, ECG shows new L BBB anteroseptal T wave changes received 2 units PRBC and one mike PLT PLT count 90. CXR with some bilateral lower lobe atelectasis , possible infiltrate left lower lobe Keep in ICU today , 8/11/18 Improving, no complaints except feeling weak. Objective: Vital Signs - 24 hr 02/09/18 14:32 02/09/18 15:00 02/09/18 19:00 Temperature 99.2 F 99.8 F H Pulse Rate 74 77 76 Respiratory Rate 20 18 20 Blood Pressure 105/33 L 109/58 L Pulse Oximetry 90 L 97 02/09/18 20:35 02/09/18 23:00 02/10/18 01:17 Temperature 99.1 F Pulse Rate 78 75 77 Respiratory Rate 22 16 24 Blood Pressure 132/60 Pulse Oximetry 96 95 02/10/18 03:00 02/10/18 07:15 02/10/18 07:22 Temperature 100 F H 98.1 F Pulse Rate 76 72 72 Respiratory Rate 18 18 Blood Pressure 101/65 107/65 Pulse Oximetry 95 96 02/10/18 07:49 02/10/18 08:08 02/10/18 11:14 Temperature Pulse Rate 70 65 Respiratory Rate 17 Blood Pressure Pulse Oximetry 97 97 02/10/18 11:16 Temperature 97.9 F Pulse Rate 65 Respiratory Rate 18 Blood Pressure 110/64 Pulse Oximetry 97 Labs: Laboratory Results - last 12 hr 02/10/18 02/10/18 02/10/18 04:23 04:23 08:20 WBC 19.8 H RBC 4.09 Hgb 12.8 Hct 37.9 MCV 92.6 MCH 31.3 MCHC 33.8 RDW 13.7 Plt Count 78 L MPV 11.1 H Prelim Diff (Auto) Slide review pending Neut % (Auto) 80.7 H Lymph % (Auto) 9.1 [place] % (Auto) 10.0 H Eos % (Auto) 0.0 Baso % (Auto) 0.2 Neut # (Auto) 16.0 H Lymph # (Auto) 1.8 [place] # (Auto) 2.0 H Eos # (Auto) 0.0 Baso # (Auto) 0.0 WBC Differential . Diff Scan Auto diff confirmed Differential Comment . Platelet Estimate Low L Platelet Morphology Normal Sodium 141 Potassium 4.7 Chloride 107 Carbon Dioxide 27.8 Anion Gap 6 BUN 20 H Creatinine 0.99 Estimated GFR 56 L POC Glucose 165 H Random Glucose 128 H Calcium 7.4 L* Prot Corrected Calcium 8.7 Magnesium 1.9 Total Protein 4.8 L Result Diagrams: 02/10/18 04:23 02/10/18 04:23 Imaging: Chest X-Ray 02/09/18 05:00 CONCLUSION: 1. Interval removal of endotracheal and nasogastric tubes 2. Stable left thoracostomy tube without evidence of pneumothorax 3. New bibasilar airspace disease. 4. Mild central congestion. Cardiovascular: RRR Telemetry: NSR Pulmonary: few crackles bilat GI/: NABS Incision: dry and intact CT: ~800 over 24 hrs, serosanguinous - Plan (1) Hypertension Plan: labile BP on pressors (5) Diastolic heart failure Plan: on pressor, s/p volume resuscitation CVP 10, maintain MAP >65 eval for diuresis in am (7) S/P CABG x 1 Plan: on ASA, statin PT/ OOB later this am pulm toileting leave in CVICU today post ECHO 02/08 EF 40% Transfer to stepdown Physical therapy Up to chair Advance diet Continue chest tubes Remove de jesus Diurese as tolerated No beta librado due to low BP and borderline HR.
[2018-02-10] MEDS ORDERED: Benzocaine/Menthol 15 MG/3.6 MG SF Lozenge BUCCAL PRN (14:00)
[2018-02-11] MEDS: Amiodarone 200 MG Tablet PO SCH ×2 (03:44→20:38)
[2018-02-11 04:34] LABS: Baso % (Auto) 0.2 % (0.0-2.0); Hematocrit 37.4 % (35.0-46.0); Hemoglobin 12.4 gm/dL (11.6-15.3); Lymph # (Auto) 1.5 th/mm3 (1.0-4.8); Lymph % (Auto) 7.4 % (9.0-44.0); Mean Corpuscular Hemoglobin 31.1 pg (27.0-34.0); Mean Corpuscular Volume 94.2 fL (80.0-100.0); Mean Platelet Volume 11.6 fL (7.0-11.0); Mono # (Auto) 1.8 th/mm3 (0.0-0.9); Mono % (Auto) 9.1 % (0.0-8.0); Neut # (Auto) 16.6 th/mm3 (1.8-7.7); Neut % (Auto) 83.3 % (16.0-70.0); Platelet Count 84 th/mm3 (150-450); Red Blood Count 3.97 mil/mm3 (4.00-5.30); Red Cell Distribution Width 13.8 % (11.6-17.2)
[2018-02-11 04:58] LABS: Calcium 8.1 mg/dL (8.5-10.1); Magnesium 2.1 mg/dL (1.5-2.5); Potassium 5.1 meq/L (3.5-5.1)
[2018-02-11 05:03] LABS: Lymphocytes 6 % (9-44); Monocytes 2 % (0-8)
[2018-02-11 05:04] LABS: RBC Morphology Normal (Normal)
[2018-02-11] MEDS: Insulin NovoLOG Aspart Correctional Sugar Inj SQ SCH ×4 (08:50→20:37)
[2018-02-11] MEDS: Multivitamin/Minerals Therapeutic Tablet PO SCH (08:52)
[2018-02-11] MEDS: Polyethylene Glycol 3350 17 GM Packet PO SCH (08:54)
[2018-02-11] MEDS: Docusate Sodium 100 MG Capsule PO SCH ×2 (08:54→20:39)
--- NOTE | 2018-02-11 12:45 | P.PNCV ---
- Note CVT: Post Op Day #: 3 Subjective/Hospital Course: A 67-year-old female initially seen 02/02/18 with history of known heart murmur for a number of years, had a new primary care physician and told the nurse practitioner that she apparently had a murmur and they felt that it was more prominent so they sent her for an echocardiogram. The echocardiogram showed severe aortic stenosis with a valve mean gradient of 84 mmHg, aortic valve area 0.52, mild tricuspid valve regurgitation and mild mitral valve regurgitation. Ejection fraction is 60%. She underwent cardiac catheterization for further evaluation. The proximal LAD was 75% stenosed, the circumflex 20%. We were consulted to evaluate for coronary artery bypass graft x 1, possibly 2, with aortic valve replacement. PAST MEDICAL HISTORY: Includes hypertension, hyperlipidemia, anxiety, history of thyroid cancer. 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 02/08 pt electively admitted surgery: AVR with a 21 Intuity tissue valve, CABG x 1, SNEED to LAD, BROOKS 16:20 Called to see patient at approximately 1500 for acute hypotensive episode. She had a respiratory acidosis when she arrived from the OR which has not completely resolved. I emergently Called Dr. Du for a consultation and have been actively resuscitating her subsequently. She has required pressors and does not have a pericardial effusion or any finding which warrants returning her to the OR. I did call the OR emergently and have the CVOR on standby until she is more stable or needs to return to the OR. I suspect she had a hemodynamic spiral with low BP and relatively low coronary perfusion pressure in the face of marked LVH and now, the absence of aortic stenosis. She has become more stable in the last 15-20 minutes. If she has further compromise, I plan toplace a IABP +/-, BROOKS, and possible re-explore her. I have communicated all this with her family. 02/09 pt extubated at 0500 now on 4 liter 02, remains on Ehsan at 40mcq wean off insulin gtt , had episode of Afib, short burst VTach yesterday on amiodarone gtt, ECG shows new L BBB anteroseptal T wave changes received 2 units PRBC and one mike PLT PLT count 90. CXR with some bilateral lower lobe atelectasis , possible infiltrate left lower lobe Keep in ICU today , 8/11/18 Improving, no complaints except feeling weak. 02/11/18 c/o no appetite Objective: Vital Signs - 24 hr 02/10/18 14:58 02/10/18 15:39 02/10/18 16:13 Temperature 97.7 F Pulse Rate 65 66 Respiratory Rate 18 18 Blood Pressure 127/60 Pulse Oximetry 95 02/10/18 16:36 02/10/18 17:19 02/10/18 17:21 Temperature Pulse Rate 62 66 Respiratory Rate 18 Blood Pressure Pulse Oximetry 02/10/18 19:00 02/10/18 20:00 02/10/18 20:03 Temperature 97.9 F Pulse Rate 65 66 Respiratory Rate 22 Blood Pressure 98/54 L Pulse Oximetry 96 96 02/10/18 21:00 02/10/18 22:00 02/10/18 23:00 Temperature 97.9 F Pulse Rate 66 68 69 Respiratory Rate 22 Blood Pressure 101/56 L Pulse Oximetry 97 02/11/18 00:00 02/11/18 01:00 02/11/18 02:00 Temperature Pulse Rate 64 64 62 Respiratory Rate Blood Pressure Pulse Oximetry 02/11/18 03:00 02/11/18 04:00 02/11/18 05:00 Temperature 97.7 F Pulse Rate 63 66 64 Respiratory Rate 22 Blood Pressure 119/58 L Pulse Oximetry 96 02/11/18 06:00 02/11/18 07:00 Temperature 97.9 F Pulse Rate 64 71 Respiratory Rate Blood Pressure 127/59 L Pulse Oximetry 95 Labs: Laboratory Results - last 12 hr 02/08/18 02/11/18 02/11/18 15:42 03:50 03:50 WBC 20.0 H RBC 3.97 L Hgb 12.4 Hct 37.4 MCV 94.2 MCH 31.1 MCHC 33.0 RDW 13.8 Plt Count 84 L MPV 11.6 H Prelim Diff (Auto) Slide review pending Neut % (Auto) 83.3 H Lymph % (Auto) 7.4 L [place] % (Auto) 9.1 H Eos % (Auto) 0.0 Baso % (Auto) 0.2 Neut # (Auto) 16.6 H Lymph # (Auto) 1.5 [place] # (Auto) 1.8 H Eos # (Auto) 0.0 Baso # (Auto) 0.0 WBC Differential Manual diff final Seg Neuts % (Manual) 80 H Band Neuts % (Manual) 12 H Lymphocytes % (Manual) 6 L Monocytes % (Manual) 2 Abs Neuts (Manual) 18.4 H Differential Comment . Platelet Estimate Low L Platelet Morphology Enlarged H RBC Morphology Normal Sodium 136 Potassium 5.1 Chloride 101 Carbon Dioxide 30.0 Anion Gap 5 BUN 34 H Creatinine 1.08 H Estimated GFR 51 L POC Glucose Random Glucose 147 H Calcium 8.1 L Magnesium 2.1 MTS Gel Crossmatch See Detail 02/11/18 02/11/18 07:56 12:29 WBC RBC Hgb Hct MCV MCH MCHC RDW Plt Count MPV Prelim Diff (Auto) Neut % (Auto) Lymph % (Auto) [place] % (Auto) Eos % (Auto) Baso % (Auto) Neut # (Auto) Lymph # (Auto) [place] # (Auto) Eos # (Auto) Baso # (Auto) WBC Differential Seg Neuts % (Manual) Band Neuts % (Manual) Lymphocytes % (Manual) Monocytes % (Manual) Abs Neuts (Manual) Differential Comment Platelet Estimate Platelet Morphology RBC Morphology Sodium Potassium Chloride Carbon Dioxide Anion Gap BUN Creatinine Estimated GFR POC Glucose 149 H 145 H Random Glucose Calcium Magnesium MTS Gel Crossmatch Result Diagrams: 02/11/18 03:50 02/11/18 03:50 Imaging: Chest X-Ray 02/09/18 05:00 CONCLUSION: 1. Interval removal of endotracheal and nasogastric tubes 2. Stable left thoracostomy tube without evidence of pneumothorax 3. New bibasilar airspace disease. 4. Mild central congestion. Cardiovascular: RRR Telemetry: NSR Pulmonary: few crackles bilaterally GI/: NABS, mild distension Incision: dry and intact CT: ~530ml/24hrs, no air leak - Plan (1) Hypertension Plan: labile BP on pressors (5) Diastolic heart failure Plan: on pressor, s/p volume resuscitation CVP 10, maintain MAP >65 eval for diuresis in am (7) S/P CABG x 1 Plan: on ASA, statin PT/ OOB later this am pulm toileting leave in CVICU today post ECHO 8/ EF 40% Diurese Encourage ambulation, PO intake Stim BM CBC, BMP, CXR in AM continue chest tubes
[2018-02-11] MEDS ORDERED: Amiodarone Inj 150 MG in Dextrose 5% in Water Inj 97 ML IV.SIG ONE ×2 (19:05)
[2018-02-11] MEDS ORDERED: Magnesium Sulfate Inj 2 GM in Sodium Chlor 0.9% Inj 96 ML IV.SIG ONE (20:00)
[2018-02-12 03:32] LABS: Hematocrit 35.9 % (35.0-46.0); Mean Corpuscular HGB Conc 33.5 % (32.0-36.0); Mean Corpuscular Hemoglobin 31.2 pg (27.0-34.0); Mean Corpuscular Volume 93.1 fL (80.0-100.0); Mean Platelet Volume 10.8 fL (7.0-11.0); Platelet Count 106 th/mm3 (150-450); Red Blood Count 3.85 mil/mm3 (4.00-5.30); Red Cell Distribution Width 13.3 % (11.6-17.2); White Blood Count 18.2 th/mm3 (4.0-11.0)
[2018-02-12 03:41] LABS: Calcium 8.1 mg/dL (8.5-10.1); Carbon Dioxide 31.4 meq/L (21.0-32.0)
--- NOTE | 2018-02-12 06:13 | XR ---
EXAM DATE: 02/12/2018 5:27 AM EDT AGE/SEX: 67 years / Female INDICATIONS: Shortness of breath, possible pulmonary disease. CLINICAL DATA: This is the patient's subsequent encounter. Patient reports that signs and symptoms h ave been present for 4 - 6 days and indicates a pain score of 0/10. MEDICAL/SURGICAL HISTORY: . Hypothyroidism. Anxiety. Aortic stenosis. Hyperlipidemia. Thyroid c ancer CABG. COMPARISON: [facility] – [place], CHEST 1V SINGLE AP, 02/09/2018. . FINDINGS: A single AP view of the chest demonstrates tiny left apical pneumothorax. Left-sided chest tube in pl winter. Cardiomegaly and previous CABG. Bibasilar densities greater on the right. Probable small pleural effusions. The cardiomediastinal contours are unremarkable. Osseous structures are intact. CONCLUSION: 1. Cardiomegaly with bibasilar densities greater right lower lobe. 2. Tiny left apical pneumothorax. Electronically signed by: Rico Tanner MD 02/12/2018 6:12 AM EDT
[2018-02-12] MEDS: Multivitamin/Minerals Therapeutic Tablet PO SCH (08:59)
[2018-02-12] MEDS: Polyethylene Glycol 3350 17 GM Packet PO SCH (08:59)
[2018-02-12] MEDS: Insulin NovoLOG Aspart Correctional Sugar Inj SQ SCH ×4 (09:00→21:00)
[2018-02-12] MEDS: Docusate Sodium 100 MG Capsule PO SCH ×2 (09:00→21:19)
[2018-02-12] MEDS: Amiodarone 200 MG Tablet PO SCH ×2 (09:01→21:22)
[2018-02-12] MEDS ORDERED: Amiodarone Inj 150 MG in Dextrose 5% in Water Inj 97 ML IV.SIG ONE ×2 (10:30)
[2018-02-12 11:30] LABS: Magnesium 2.6 mg/dL (1.5-2.5)
[2018-02-12] MEDS: DOBUTamine 250 MG/250 ML Premx 250 MG/250 ML BAG IV.CONT SCH ×2 (12:37→12:38)
--- NOTE | 2018-02-12 16:04 | P.PNCV ---
- Note Subjective/Hospital Course: A 67-year-old female initially seen 02/02/18 with history of known heart murmur for a number of years, had a new primary care physician and told the nurse practitioner that she apparently had a murmur and they felt that it was more prominent so they sent her for an echocardiogram. The echocardiogram showed severe aortic stenosis with a valve mean gradient of 84 mmHg, aortic valve area 0.52, mild tricuspid valve regurgitation and mild mitral valve regurgitation. Ejection fraction is 60%. She underwent cardiac catheterization for further evaluation. The proximal LAD was 75% stenosed, the circumflex 20%. We were consulted to evaluate for coronary artery bypass graft x 1, possibly 2, with aortic valve replacement. PAST MEDICAL HISTORY: Includes hypertension, hyperlipidemia, anxiety, history of thyroid cancer. 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 02/08 pt electively admitted surgery: AVR with a 21 Intuity tissue valve, CABG x 1, SNEED to LAD, BROOKS 16:20 Called to see patient at approximately 1500 for acute hypotensive episode. She had a respiratory acidosis when she arrived from the OR which has not completely resolved. I emergently Called Dr. Du for a consultation and have been actively resuscitating her subsequently. She has required pressors and does not have a pericardial effusion or any finding which warrants returning her to the OR. I did call the OR emergently and have the CVOR on standby until she is more stable or needs to return to the OR. I suspect she had a hemodynamic spiral with low BP and relatively low coronary perfusion pressure in the face of marked LVH and now, the absence of aortic stenosis. She has become more stable in the last 15-20 minutes. If she has further compromise, I plan toplace a IABP +/-, BROOKS, and possible re-explore her. I have communicated all this with her family. 02/09 pt extubated at 0500 now on 4 liter 02, remains on Ehsan at 40mcq wean off insulin gtt , had episode of Afib, short burst VTach yesterday on amiodarone gtt, ECG shows new L BBB anteroseptal T wave changes received 2 units PRBC and one mike PLT PLT count 90. CXR with some bilateral lower lobe atelectasis , possible infiltrate left lower lobe Keep in ICU today , 02/10/18 Improving, no complaints except feeling weak. 02/11/18 c/o no appetite 02/12 still with some mild nausea went back into Afib RVR this am , amiodarone bolus given, now on 400mg bid all labs stable start lovenox, will need eliquis / fab score 3 Objective: Vital Signs - 24 hr 02/11/18 16:00 02/11/18 17:00 02/11/18 17:30 Temperature Pulse Rate 68 76 77 Respiratory Rate 20 Blood Pressure Pulse Oximetry 02/11/18 18:00 02/11/18 19:00 02/11/18 20:00 Temperature 97.8 F Pulse Rate 72 116 H 124 H Respiratory Rate 18 Blood Pressure 123/67 Pulse Oximetry 96 02/11/18 21:00 02/11/18 21:49 02/11/18 22:00 Temperature Pulse Rate 130 H 139 H Respiratory Rate Blood Pressure Pulse Oximetry 98 02/11/18 23:00 02/12/18 00:00 02/12/18 00:45 Temperature 98.9 F Pulse Rate 135 H 132 H Respiratory Rate 18 Blood Pressure 105/59 L Pulse Oximetry 98 90 L 02/12/18 00:51 02/12/18 00:53 02/12/18 01:00 Temperature Pulse Rate 135 H 112 H Respiratory Rate 16 Blood Pressure 105/66 Pulse Oximetry 92 L 93 L 02/12/18 02:00 02/12/18 03:00 02/12/18 04:00 Temperature 98.4 F Pulse Rate 134 H 110 H 115 H Respiratory Rate 18 18 Blood Pressure 98/60 L Pulse Oximetry 97 02/12/18 05:00 02/12/18 06:00 02/12/18 07:00 Temperature 97.8 F Pulse Rate 60 58 L 60 Respiratory Rate 16 Blood Pressure 128/59 L Pulse Oximetry 93 L 02/12/18 08:00 02/12/18 09:00 02/12/18 09:53 Temperature Pulse Rate 62 60 Respiratory Rate Blood Pressure Pulse Oximetry 92 L 02/12/18 10:00 02/12/18 11:00 02/12/18 12:00 Temperature 98.2 F Pulse Rate 109 H 117 H 122 H Respiratory Rate 20 Blood Pressure 108/62 Pulse Oximetry 95 02/12/18 13:00 02/12/18 13:58 02/12/18 15:00 Temperature 97.7 F Pulse Rate 97 H 123 H 64 Respiratory Rate 18 Blood Pressure 101/56 L Pulse Oximetry 93 L 02/12/18 15:33 Temperature Pulse Rate 64 Respiratory Rate 18 Blood Pressure Pulse Oximetry GENERAL: A&O x 3 SKIN: Warm and dry. prevena dressing to chest HEAD: Normocephalic. EYES: No scleral icterus. No injection or drainage. NECK: Supple, trachea midline. No JVD or lymphadenopathy. CARDIOVASCULAR: Regular rate and rhythm without murmurs, gallops, or rubs. general edema RESPIRATORY: Breath sounds equal bilaterally. No accessory muscle use. diminished in bases GASTROINTESTINAL: Abdomen soft, non-tender, nondistended. MUSCULOSKELETAL: No cyanosis, or edema. BACK: Nontender without obvious deformity. No CVA tenderness. Labs: Laboratory Results - last 12 hr 02/12/18 02/12/18 02/12/18 02:48 08:08 08:10 POC Glucose 200 H 149 H Phosphorus 3.0 Magnesium 2.6 H 02/12/18 11:40 POC Glucose 150 H Phosphorus Magnesium Result Diagrams: 02/12/18 02:48 02/12/18 02:48 - Plan (1) Hypertension Plan: stable / start low dose BB (2) Hyperlipidemia Plan: on statin (5) Diastolic heart failure Plan: continue diuresis (7) S/P CABG x 1 Plan: on ASA, statin PT/ OOB later this am pulm toileting post ECHO 02/08 EF 40% recheck limited echo in am (1) Hypertension Qualifiers: Hypertension type: essential hypertension Qualified Code(s): I10 - Essential (primary) hypertension
[2018-02-12] MEDS: ALPRAZolam 0.5 MG Tablet PO PRN (16:13)
--- NOTE | 2018-02-12 16:27 | ECG ---
Date Performed: 02/11/2018 Time Performed: 18:40:58 PTAGE: 67 years EKG: Atrial fibrillation with rapid ventricular response. Left bundle branch block When compared to prior ekg the atrial fibrillation with rapid ventricular response is new. Abnormal ECG PREVIOUS TRACING : 02/09/2018 03.59 DOCTOR: Jb Newton Interpretating Date/Time 02/12/2018 16:26:46
[2018-02-12] MEDS: Enoxaparin Inj 40 MG/0.4 ML Syringe SQ SCH (21:19)
[2018-02-12] MEDS: Metoprolol Tartrate 25 MG Tablet PO SCH (21:20)
[2018-02-13 06:01] LABS: Hematocrit 36.9 % (35.0-46.0); Hemoglobin 12.1 gm/dL (11.6-15.3); Mean Corpuscular HGB Conc 32.8 % (32.0-36.0); Mean Corpuscular Volume 94.7 fL (80.0-100.0); Mean Platelet Volume 10.1 fL (7.0-11.0); Platelet Count 135 th/mm3 (150-450); Red Cell Distribution Width 13.6 % (11.6-17.2); White Blood Count 12.2 th/mm3 (4.0-11.0)
--- NOTE | 2018-02-13 06:05 | XR ---
EXAM DATE: 02/13/2018 5:49 AM EDT AGE/SEX: 67 years / Female INDICATIONS: Short of breath, post chest tube removal. CLINICAL DATA: This is the patient's subsequent encounter. Patient reports that signs and symptoms h ave been present for 1 week and indicates a pain score of 0/10. MEDICAL/SURGICAL HISTORY: . Hypothyroidism. Anxiety. Aortic stenosis. Hyperlipidemia. Thyroid c ancer CABG. COMPARISON: [facility] [place] 1[place] SINGLE AP[place] 02/12/2018. . FINDINGS: A single AP view of the chest demonstrates bibasilar airspace disease. Cardiomegaly with increase in pulmonary vascularity. Status post CABG.. The cardiomediastinal contours are unremarkable. Osseous structures are intact. CONCLUSION: Bibasilar airspace disease greater right lower lobe Electronically signed by: Rico Tanner MD 02/13/2018 6:03 AM EDT
[2018-02-13 06:07] LABS: Calcium 7.7 mg/dL (8.5-10.1); Carbon Dioxide 33.6 meq/L (21.0-32.0); Potassium 4.4 meq/L (3.5-5.1)
[2018-02-13] MEDS: Enoxaparin Inj 40 MG/0.4 ML Syringe SQ SCH (08:26)
[2018-02-13] MEDS: Insulin NovoLOG Aspart Correctional Sugar Inj SQ SCH ×4 (08:26→23:01)
[2018-02-13] MEDS: Amiodarone 200 MG Tablet PO SCH ×2 (08:27→22:56)
[2018-02-13] MEDS: Multivitamin/Minerals Therapeutic Tablet PO SCH (08:28)
[2018-02-13] MEDS: Metoprolol Tartrate 25 MG Tablet PO SCH (08:28)
[2018-02-13] MEDS: Polyethylene Glycol 3350 17 GM Packet PO SCH (08:29)
[2018-02-13] MEDS: Docusate Sodium 100 MG Capsule PO SCH ×2 (08:29→22:57)
[2018-02-13] MEDS ORDERED: Amiodarone Inj 150 MG in Dextrose 5% in Water Inj 97 ML IV.SIG ONE ×2 (08:44)
[2018-02-13] MEDS ORDERED: Metoprolol Tartrate 25 MG Tablet PO SCH (10:18)
--- NOTE | 2018-02-13 10:34 | P.PNCV ---
- Note Subjective/Hospital Course: A 67-year-old female initially seen 02/02/18 with history of known heart murmur for a number of years, had a new primary care physician and told the nurse practitioner that she apparently had a murmur and they felt that it was more prominent so they sent her for an echocardiogram. The echocardiogram showed severe aortic stenosis with a valve mean gradient of 84 mmHg, aortic valve area 0.52, mild tricuspid valve regurgitation and mild mitral valve regurgitation. Ejection fraction is 60%. She underwent cardiac catheterization for further evaluation. The proximal LAD was 75% stenosed, the circumflex 20%. We were consulted to evaluate for coronary artery bypass graft x 1, possibly 2, with aortic valve replacement. PAST MEDICAL HISTORY: Includes hypertension, hyperlipidemia, anxiety, history of thyroid cancer. 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 02/08 pt electively admitted surgery: AVR with a 21 Intuity tissue valve, CABG x 1, SNEED to LAD, BROOKS 16:20 Called to see patient at approximately 1500 for acute hypotensive episode. She had a respiratory acidosis when she arrived from the OR which has not completely resolved. I emergently Called Dr. Du for a consultation and have been actively resuscitating her subsequently. She has required pressors and does not have a pericardial effusion or any finding which warrants returning her to the OR. I did call the OR emergently and have the CVOR on standby until she is more stable or needs to return to the OR. I suspect she had a hemodynamic spiral with low BP and relatively low coronary perfusion pressure in the face of marked LVH and now, the absence of aortic stenosis. She has become more stable in the last 15-20 minutes. If she has further compromise, I plan toplace a IABP +/-, BROOKS, and possible re-explore her. I have communicated all this with her family. 02/09 pt extubated at 0500 now on 4 liter 02, remains on Ehsan at 40mcq wean off insulin gtt , had episode of Afib, short burst VTach yesterday on amiodarone gtt, ECG shows new L BBB anteroseptal T wave changes received 2 units PRBC and one mike PLT PLT count 90. CXR with some bilateral lower lobe atelectasis , possible infiltrate left lower lobe Keep in ICU today , 02/10/18 Improving, no complaints except feeling weak. 02/11/18 c/o no appetite 02/12 still with some mild nausea went back into Afib RVR this am , amiodarone bolus given, now on 400mg bid all labs stable start lovenox, will need eliquis / fab score 3 02/13 back into afib RVR, on amiodarone gtt, BB increased mag phos TSH pending, consult cardiology add eliquis ambulate , check 2d echo Objective: Vital Signs - 24 hr 02/12/18 11:00 02/12/18 12:00 02/12/18 13:00 Temperature 98.2 F Pulse Rate 117 H 122 H 97 H Respiratory Rate 20 Blood Pressure 108/62 Pulse Oximetry 95 02/12/18 13:58 02/12/18 15:00 02/12/18 15:33 Temperature 97.7 F Pulse Rate 123 H 64 64 Respiratory Rate 18 18 Blood Pressure 101/56 L Pulse Oximetry 93 L 02/12/18 16:00 02/12/18 17:00 02/12/18 18:00 Temperature Pulse Rate 67 72 73 Respiratory Rate Blood Pressure Pulse Oximetry 02/12/18 19:00 02/12/18 20:00 02/12/18 21:00 Temperature 97.9 F Pulse Rate 72 80 70 Respiratory Rate 18 Blood Pressure 132/60 Pulse Oximetry 96 02/12/18 22:00 02/12/18 23:00 02/13/18 00:00 Temperature 97.9 F Pulse Rate 68 64 64 Respiratory Rate 18 Blood Pressure 104/52 L Pulse Oximetry 98 100 02/13/18 01:00 02/13/18 02:00 02/13/18 03:00 Temperature Pulse Rate 68 72 70 Respiratory Rate Blood Pressure Pulse Oximetry 98 02/13/18 04:00 02/13/18 05:00 02/13/18 06:00 Temperature 98.3 F Pulse Rate 76 72 122 H Respiratory Rate 16 Blood Pressure 110/59 L Pulse Oximetry 95 02/13/18 07:00 02/13/18 08:00 02/13/18 09:00 Temperature 98.2 F Pulse Rate 165 H 156 H 152 H Respiratory Rate 18 Blood Pressure 125/57 L Pulse Oximetry 95 02/13/18 10:00 Temperature Pulse Rate 66 Respiratory Rate Blood Pressure Pulse Oximetry GENERAL: A&O x 3 SKIN: Warm and dry. prevena dressing to chest HEAD: Normocephalic. EYES: No scleral icterus. No injection or drainage. NECK: Supple, trachea midline. No JVD or lymphadenopathy. CARDIOVASCULAR: Regular rate and rhythm without murmurs, gallops, or rubs. Afib> NSR, mild general edema RESPIRATORY: Breath sounds equal bilaterally. No accessory muscle use. diminished in bases GASTROINTESTINAL: Abdomen soft, non-tender, nondistended. MUSCULOSKELETAL: No cyanosis, or edema. BACK: Nontender without obvious deformity. No CVA tenderness. Labs: Laboratory Results - last 12 hr 02/13/18 02/13/18 02/13/18 05:29 05:29 07:49 WBC 12.2 H RBC 3.90 L Hgb 12.1 Hct 36.9 MCV 94.7 MCH 31.0 MCHC 32.8 RDW 13.6 Plt Count 135 L MPV 10.1 Sodium 135 L Potassium 4.4 Chloride 96 L Carbon Dioxide 33.6 H Anion Gap 5 BUN 31 H Creatinine 0.92 Estimated GFR 61 L POC Glucose 136 H Random Glucose 100 Calcium 7.7 L Result Diagrams: 02/13/18 05:29 02/13/18 05:29 - Plan (1) Hypertension Plan: stable / start low dose BB (2) Hyperlipidemia Plan: on statin (5) Diastolic heart failure Plan: continue diuresis (6) S/P AVR Plan: check 2 d echo (7) S/P CABG x 1 Plan: on ASA, statin PT/ OOB later this am pulm toileting post ECHO 02/08 EF 40% recheck limited echo in am (1) Hypertension Qualifiers: Hypertension type: essential hypertension Qualified Code(s): I10 - Essential (primary) hypertension
--- NOTE | 2018-02-13 12:43 | ECG ---
Date Performed: 02/13/2018 Time Performed: 06:09:14 PTAGE: 67 years EKG: Atrial fibrillation with rapid ventricular response Left bundle branch block Abnormal ECG N o significant change from prior electrocardiogram. PREVIOUS TRACING : 02/11/2018 18.40 DOCTOR: Brady Maza Interpretating Date/Time 02/13/2018 12:43:11
--- NOTE | 2018-02-13 13:29 | ECHRPT ---
Indication: CONCLUSIONS Technically limited and difficult study. Grossly, left ventricular function appears to be low kurt l. No definite regional wall motion abnormalities. Normal left ventricular size and wall thickness. Trace mitral valve regurgitation. There is trace tricuspid valve regurgitation. The estimated pulmonary arterial pressure is 39 mmHg. BP: / HR: Rhythm: Sinus MEASUREMENTS (Male / Female) Normal Values Technical Quality:Very technically difficult study DOPPLER LVOT Peak Velocity 247.0 cm/s LVOT Peak Gradient 24.4 mmHg LVOT Velocity Time Integral 49.9 cm Mitral E Point Velocity 112.0 cm/s LV E' Lateral Velocity 5.4 cm/s Mitral E to LV E' Lateral Ratio 20.9 LV E' Septal Velocity 3.1 cm/s Mitral E to LV E' Septal Ratio 36.0 TR Peak Velocity 271.0 cm/s TR Peak Gradient 29.4 mmHg Right Atrial Pressure 10.0 mmHg Pulmonary Artery Systolic Pressu 39.4 mmHg Right Ventricular Systolic Press 39.4 mmHg FINDINGS LEFT VENTRICLE Technically limited and difficult study. Grossly, left ventricular function appears to be low kurt l. No definite regional wall motion abnormalities. Normal left ventricular size and wall thickness. RIGHT VENTRICLE Normal right ventricular size and systolic function. LEFT ATRIUM The left atrial size is normal. RIGHT ATRIUM The right atrial size is normal. ATRIAL SEPTUM Normal atrial septal thickness without atrial level shunting by limited color doppler interrogation. AORTA The aortic root and proximal ascending aorta are normal in size on limited imaging. MITRAL VALVE Trace mitral valve regurgitation. AORTIC VALVE No aortic valve stenosis or regurgitation. TRICUSPID VALVE There is trace tricuspid valve regurgitation. The estimated pulmonary arterial pressure is 39 mmHg. PULMONARY VALVE No pulmonary valve regurgitation or stenosis. VESSELS The inferior vena cava is normal in size. PERICARDIUM No pericardial effusion. Dat Rojas MD (Electronically Signed) Final Date:13 February 2018 13:28
[2018-02-13 14:04] LABS: Thyroid Stimulating Hormone 5.24 uIU/mL (0.358-3.740)
[2018-02-13 14:06] LABS: Magnesium 2.3 mg/dL (1.5-2.5)
--- NOTE | 2018-02-13 15:09 | P.CONCA ---
History of Present Illness Service: [facility] cardiology Consult date: 02/13/18 Requesting Physician: Natalie Gold Primary Care Provider: Frank Jacobsen MD Chief Complaint: Post CABG and AVR, now with refractory shock History of Present Illness: 67 yo lady with single vessel CAD involving the LAD, severe symptomatic (BROOKE 0.52cm2, mean gradient 84mmHg), now POD# 5 s/p elective SAVR with a 21mm Intuity valve and CABG x1 (SNEED-LAD). Post-op course has been complicated by initial hypotension requiring pressor support and IVF resuscitation. No pericardial effusion was seen by bedside echo. She was noted to have marked LVH by visualization by Dr Gold and it was presumed at that time that she may have had pseudo LVOT obstruction with hyperdynamic LV function which led to the event. On 02/09, she was extubated and developed post-op Afib with a short burst of VT per report, however upon evaluation of ECG, she developed a new LBBB and deep anteroseptal TWI with ST-depressions. She was transfused 2 units of PRBC and 1 PLTs. CXR revealed possible LLL infiltrate. She has been in and out of Afib with attempts to transition IV amiodarone to 400mg po bid. She has been started on Eliquis 5mg bid for chronic anticoagulation given CHADS2-VASc score of 3 and difficulty controlling AF thus far. She has been on lasix 40mg iv daily and diuresing, but still with hypervolemia. Noted bilateral LE edema and still requiring supplemental O2. Limited Echocardiogram completed today was reviewed by myself and had poor echocardiographic window visualization but a visually estimated LVEF of around 40% with regional wall motion abnormalities with apical akinesis, and hypokinesis of the [id number] septum, and anteroseptal mclean. Prior echo 02/02 LVEF was 60% with no RWMAs. ECG today shows NSR 66bpm, LBBB. Patient feels some dyspnea but no chest pain, palpitations, orthopnea or PND. She has 2+bl LE edema. Review of Systems All other systems reviewed negative except as stated in HPI PMF - History History Provided By: Patient - Medical / Surgical Hx Neg / Unobtainable Medical Problems Denied: Unable to Obtain - Medical History Medical History: Medical History (Last Reviewed 02/10/18 @ 08:40 by Liana Yanes) Anxiety Aortic stenosis HLD (hyperlipidemia) Hypothyroid Thyroid cancer - Tobacco History Tobacco Use In Past 30 Days: Yes Smoking Status: Current every day smoker Tobacco Type: Cigarettes - Alcohol History How Often Do You Have a Drink Containing Alcohol: Never - Substance Use History Substance History: No History of Abuse - Travel History Recent Travel in the [facility] Within the Last 8 Weeks: No Medications and Allergies Active Medications: Active Medications Al Hydroxide/Mg Hydroxide (Milk Of Magnesia Liq) 30 ml PO DAILY [facility] Last Admin: 02/13/18 08:29 Dose: Not Given Alprazolam (Xanax) 0.5 mg PO BID PRN PRN Reason: ANXIETY Last Admin: 02/12/18 16:13 Dose: 0.5 mg Amiodarone HCl (Cordarone) 400 mg PO Q12HR [facility] Last Admin: 02/13/18 08:27 Dose: 400 mg Apixaban (Eliquis) 5 mg PO BID [facility] Aspirin (Ecotrin) 81 mg PO DAILY [facility] Last Admin: 02/13/18 08:28 Dose: 81 mg Benzocaine/Menthol (Cepacol Max Strength) 1 lozenge BUCCAL Q4H PRN PRN Reason: SORE THROAT Bisacodyl (Dulcolax Supp) 10 mg RECTAL PRN PRN PRN Reason: SEE LABEL COMMENTS Carvedilol (Coreg) 6.25 mg PO BID [facility] Dextrose (D50w Vial) 50 ml IV.PUSH UNSCH PRN PRN Reason: PER HYPOGLYCEMIA PROTOCOL Docusate Sodium (Colace) 100 mg PO BID [facility] Last Admin: 02/13/18 08:29 Dose: Not Given Furosemide (Lasix Inj) 40 mg IV.PUSH BID@0900,1800 [facility] Glucagon (Glucagon Inj) 1 mg OTHER PRN PRN PRN Reason: For hypoglycemia Insulin Aspart (Novolog Insulin Correctional Sugar Inj) 0 unit SQ ACHS [facility]; Protocol Last Admin: 02/13/18 11:59 Dose: 4 unit Ipratropium [place] (Atrovent Neb) 0.5 mg NEB Q6HR NEB [facility] Levothyroxine Sodium (Synthroid) 25 mcg PO DAILY@0600 [facility] Last Admin: 02/13/18 07:32 Dose: 25 mcg Metoclopramide HCl (Reglan Inj) 5 mg IV.PUSH Q8HR [facility]; Protocol Last Admin: 02/13/18 13:27 Dose: 5 mg Multivitamins/Minerals (Theragran-M) 1 tab PO DAILY [facility] Last Admin: 02/13/18 08:28 Dose: 1 tab Ondansetron HCl (Zofran Inj) 4 mg IV.PUSH Q6H PRN PRN Reason: NAUSEA OR VOMITING Last Admin: 02/12/18 08:03 Dose: 4 mg Oxycodone/Acetaminophen (Percocet 5/325 Mg) 1 tab PO Q3H PRN PRN Reason: PAIN SCALE 1 TO 5 Last Admin: 02/12/18 00:45 Dose: 1 tab Pantoprazole Sodium (Protonix) 40 mg PO DAILY@06 [facility] Last Admin: 02/13/18 07:32 Dose: 40 mg Polyethylene Glycol (Miralax) 17 gm PO DAILY [facility] Last Admin: 02/13/18 08:29 Dose: Not Given Pravastatin Sodium (Pravachol) 20 mg PO [facility] Last Admin: 02/12/18 21:20 Dose: 20 mg Sennosides (Senokot) 8.6 mg PO [facility] Last Admin: 02/12/18 21:19 Dose: 8.6 mg Sodium Biphosphate/Sodium Phosphate (Fleets Enema (Adult)) 118 ml RECTAL UNSCH PRN PRN Reason: SEE LABEL COMMENTS Sodium Chloride (Ns Flush) 2 ml IV.FLUSH BID [facility] Last Admin: 02/13/18 08:29 Dose: 2 ml Sodium Chloride (Ns Flush) 2 ml IV.FLUSH PRN PRN PRN Reason: FLUSH AFTER USING IV ACCESS Terbutaline Sulfate (Brethine Inj) 1 mg SQ UNSCH PRN PRN Reason: For Extravasation Vitamin D (Vitamin D3) 1,000 unit PO DAILY [facility] Last Admin: 02/13/18 08:28 Dose: 1,000 unit Allergies Allergy/AdvReac Type Severity Reaction Status Date / Time bee venom protein (honey bee) Allergy Edema, Verified 02/08/18 06:03 [Bee sting] Localized metronidazole [From Flagyl] Allergy Hives Verified 02/08/18 06:03 Penicillins Allergy Hives Verified 02/08/18 06:03 Home Medications Medication Instructions Recorded Confirmed Type alprazolam 0.5 mg PO BID 02/02/18 02/08/18 History aspirin [Aspir-81] 81 mg PO DAILY 02/02/18 02/08/18 History atenolol 50 mg PO DAILY 02/02/18 02/08/18 History cholecalciferol (vitamin D3) 1,000 unit PO DAILY 02/02/18 02/08/18 History [Vitamin D3] hydrochlorothiazide 25 mg PO DAILY 02/02/18 02/08/18 History levothyroxine 25 mcg PO DAILY 02/02/18 02/08/18 History levothyroxine 200 mcg PO DAILY 02/02/18 02/08/18 History lovastatin 20 mg PO HS 02/02/18 02/08/18 History potassium mcg PO EVERY OTHER DAY 02/02/18 02/02/18 History Exam Vital signs: Vital Signs 02/12/18 15:00 02/12/18 15:33 02/12/18 16:00 Temperature 97.7 F Pulse Rate 64 64 67 Respiratory Rate 18 18 Blood Pressure 101/56 L Pulse Oximetry 93 L 02/12/18 17:00 02/12/18 18:00 02/12/18 19:00 Temperature 97.9 F Pulse Rate 72 73 72 Respiratory Rate 18 Blood Pressure 132/60 Pulse Oximetry 96 02/12/18 20:00 02/12/18 21:00 02/12/18 22:00 Temperature Pulse Rate 80 70 68 Respiratory Rate Blood Pressure Pulse Oximetry 02/12/18 23:00 02/13/18 00:00 02/13/18 01:00 Temperature 97.9 F Pulse Rate 64 64 68 Respiratory Rate 18 Blood Pressure 104/52 L Pulse Oximetry 98 100 02/13/18 02:00 02/13/18 03:00 02/13/18 04:00 Temperature 98.3 F Pulse Rate 72 70 76 Respiratory Rate 16 Blood Pressure 110/59 L Pulse Oximetry 98 95 02/13/18 05:00 02/13/18 06:00 02/13/18 07:00 Temperature 98.2 F Pulse Rate 72 122 H 165 H Respiratory Rate 18 Blood Pressure 125/57 L Pulse Oximetry 95 02/13/18 08:00 02/13/18 09:00 02/13/18 10:00 Temperature Pulse Rate 156 H 152 H 66 Respiratory Rate Blood Pressure Pulse Oximetry 02/13/18 11:00 02/13/18 12:00 02/13/18 13:00 Temperature 98.1 F Pulse Rate 68 68 67 Respiratory Rate 18 Blood Pressure 118/57 L Pulse Oximetry 98 02/13/18 14:00 Temperature Pulse Rate 67 Respiratory Rate Blood Pressure Pulse Oximetry Intake & Output 02/12/18 02/13/18 02/13/18 18:59 06:59 18:59 Intake Total 1320 / 1320 680 / 680 100 / 100 Output Total 1500 / 1500 900 / 900 Balance -180 / -180 -220 / -220 100 / 100 Weight 93.5 kg Intake: IV 600 / 600 100 / 100 Cordarone Inj 450 MG In D5W Inj 500 / 500 241 ML @ 1 MG/MIN 33.33 mls/hr IV.CONT TITRATE PRN Rx#: [id number] Cordarone Inj 150 MG In D5W Inj 100 / 100 100 / 100 97 ML @ 600 mls/hr IV.SIG ONCE ONE Rx#:[id number] Oral 720 / 720 680 / 680 Output: Urine 1200 / 1200 900 / 900 Emesis 300 / 300 Other: Date of Last Bowel Movement 02/08/18 02/12/18 02/13/18 # Bowel Movements 2 Narrative: GENERAL: AOx 3, appears comfortable with supplemental O2 via NC SKIN: Warm and dry. HEAD: Atraumatic. Normocephalic. EYES: Pupils equal and round. No scleral icterus. No injection or drainage. ENT: No nasal bleeding or discharge. Mucous membranes pink and moist. NECK: Trachea midline. JVP 10cm CARDIOVASCULAR: Regular rate and rhythm. no significant murmur. s/p central sternotomy cover RESPIRATORY: No accessory muscle use. moderate end expiratory wheeze. Breath sounds distant without obvious rales. GASTROINTESTINAL: Abdomen soft, non-tender, nondistended. MUSCULOSKELETAL: Extremities without clubbing, cyanosis, or edema. No obvious deformities. NEUROLOGICAL: Awake and alert. No obvious cranial nerve deficits. Normal speech. PSYCHIATRIC: Appropriate mood and affect; insight and judgment normal. Results 02/13/18 05:29 02/13/18 05:29 CBC 02/13/18 Range/Units 05:29 WBC 12.2 H (4.0-11.0) th/mm3 RBC 3.90 L (4.00-5.30) mil/mm3 Hgb 12.1 (11.6-15.3) gm/dL Hct 36.9 (35.0-46.0) % Plt Count 135 L (150-450) th/mm3 Comprehensive Metabolic Panel 02/13/18 Range/Units 05:29 Sodium 135 L (136-145) meq/L Potassium 4.4 (3.5-5.1) meq/L Chloride 96 L (98-107) meq/L Carbon Dioxide 33.6 H (21.0-32.0) meq/L BUN 31 H (7-18) mg/dL Creatinine 0.92 (0.50-1.00) mg/dL Calcium 7.7 L (8.5-10.1) mg/dL Intake and Output 02/12/18 02/13/18 02/13/18 22:59 06:59 14:59 Intake Total 1070 / 1070 680 / 680 100 / 100 Output Total 1500 / 1500 900 / 900 Balance -430 / -430 -220 / -220 100 / 100 Intake: IV 350 / 350 100 / 100 Cordarone Inj 450 MG In D5W Inj 250 / 250 241 ML @ 1 MG/MIN 33.33 mls/hr IV.CONT TITRATE PRN Rx#: [id number] Cordarone Inj 150 MG In D5W Inj 100 / 100 100 / 100 97 ML @ 600 mls/hr IV.SIG ONCE ONE Rx#:[id number] Oral 720 / 720 680 / 680 Output: Urine 1200 / 1200 900 / 900 Emesis 300 / 300 Other: Date of Last Bowel Movement 02/08/18 02/12/18 02/13/18 # Bowel Movements 2 Weight 93.5 kg Assessment and Plan - Plan Assessment: Severe POD#5 s/p SAVR with a 21mm Intuity valve Single vessel CAD s/p CABG x 1 SNEED-LAD Post-operative Atrial fibrillation, CHADS2-VASc 3 New LBBB ADHF, systolic Cardiomyopathy, new with reduced EF to 40% by my visual estimation with noted RWMAs in LAD territory. Suspect either she had a coronary event with [place] versus stress cardiomyopathy to be considered. She is currently chest pain free and improving from a surgical stand point. Would treat with medical management and reassess with TTE in 2 weeks and if LVEF is still reduced, would pursue repeat coronary angiography and possible PCI if indicated. Recommendations: As above and -increase lasix to 40mg iv bid until Cr bumps -transition amiodarone gtt to po 400mg bid -stop metoprolol and start carvedilol 6.25mg bid -duoneb treatment for wheeze, pulmonary toilet and Incentive spirometry -continue eliquis 5mg bid -rest per Dr Gold team
--- NOTE | 2018-02-13 15:57 | P.DCO ---
- Diagnosis (4) CAD (coronary artery disease) (6) Hypertension (7) Hyperlipidemia - Physical Therapy Order: Evaluate and treat - Speech Therapy Instructions: Heart and Vascular Surgery patients *Special attention to sternal dressing Mandatory frequency Assess and evaluation, 4 days in a row The next week 3X week 2 times a week for 4 weeks 1 time a week for 5 weeks Schedule Heart and Vascular patients for full 60 day certification period Initial visit Review Open Heart Surgery Discharge Instructions (Sternal precautions, Activity, Elastic hose, Incision care, Driving, Incentive spirometry, Smoking, Haring, Work and other) Need Betadine to paint incision Medication reconciliation Importance of follow up care/ check on appointments Make calendar record temperature daily When to call [facility] at Home nurse, review instructions, phone list Incentive Spirometry, demonstration Visit 1- Begin discharge instruction for patient family and/ or caregiver using teach back method- Signs and symptoms of infection Disease characteristics Medicines and side effects Foods and nutrition/ appetite Infection control/ hand washing/ hygiene Visit 2- Continue teaching Discharge instructions- include additional information on smoking cessation , sternal dressing (sternal vac) Visit 3- Continue teaching- Cough and deep breathing, incision monitoring. Choose my plate Visit 4- Continue teaching- Discuss limitations Discuss how they are feeling Discuss progress toward goals Remaining visits- continue teaching and monitoring For any questions please call : Monday 8am-5pm Heart & Vascular Surgery Office ( Dr. Benítez & Dr. Gold), After Hours / Nights (5pm -8am) Weekends and Holidays Please call [facility] ([facility]) Charge Nurse Incentive spirometry Q1 hr x 10, while awake, also use acapella device hourly whole awake Sternal Breast Bone Precautions: NO pushing or pulling, ( pt must use sternal pillow to support chest with all activities and with coughing ( takes up to 3 months breast bone to heal ) All females to wear sternal bra , launder as needed Daily incision care: ok to shower daily, no tub bath. Wash all incisions with liquid dial soap, clean wash cloth to each site, rinse and pat dry. Observe for any signs of infection, such as drainage which is dark yellow, silva, green or foul smelling. Immediately report to the surgeon any drainage from the chest incision, or legs, and for any abnormal drainage from the chest tube sites. Notify surgeon if any temp >101.5 degrees F. When specialty dressing removed/ or if you do not have one, continue to shower daily as above, then rinse and pat incision dry and paint with betadine daily x 5 days. Allow steri strips to fall off if you have any. Avoid lotions, creams, salves, oils, etc. for the first month For Dr. Gold patients , please obtain CBC, BMP, PA & Lat CXR in 2 weeks, results to Dr. Gold ( prescription will be given) ( ) (Tele: [phone]) , Valve replacement pts will need 2decho in 2 weeks with results to Dr. Gold . Please obtain 2 d echo at your relay adjuster office if possible F/U appointment: as per DC instructions: PCP in 2 weeks, CV surgeon 2 weeks, Power Mule Operator 3-4 weeks For any questions regarding incisions/ dressing / meds / post op care or above Symptoms, Monday 8am-5pm Heart & Vascular Surgery Office ( Dr. Benítez & Dr. Gold), After Hours / Nights (5pm -8am) Weekends and Holidays Please call [facility] ([facility]) Charge Nurse - Certification I have seen patient Kay Donohue on 02/13/18. My clinical findings support the need for the requested home health care services because: Deconditioned with increased weakness I certify that my clinical findings support that this patient is homebound because: Post-op weakness (4) CAD (coronary artery disease) Qualifiers: Coronary Disease-Associated Artery/Lesion type: douglas artery (6) Hypertension Qualifiers: Hypertension type: essential hypertension Qualified Code(s): I10 - Essential (primary) hypertension (7) Hyperlipidemia Qualifiers: Hyperlipidemia type: mixed hyperlipidemia Qualified Code(s): E78.2 - Mixed hyperlipidemia
--- NOTE | 2018-02-13 21:01 | ECG ---
Date Performed: 02/13/2018 Time Performed: 14:15:16 PTAGE: 67 years EKG: Sinus rhythm . Left bundle branch block Abnormal ECG PREVIOUS TRACING : 02/13/2018 06.09 Compared to previous tracing, sinus rhythm has replaced atr ial fibrillation, heart rate has slowed. DOCTOR: Dat Rojas Interpretating Date/Time 02/13/2018 20:59:29
[2018-02-13] MEDS: Carvedilol 6.25 MG Tablet PO SCH (22:57)
[2018-02-14] MEDS: ALPRAZolam 0.5 MG Tablet PO PRN (02:11)
[2018-02-14 06:54] LABS: Calcium 7.4 mg/dL (8.5-10.1); Carbon Dioxide 38.8 meq/L (21.0-32.0); Potassium 4.2 meq/L (3.5-5.1)
[2018-02-14 07:20] LABS: Total Protein 4.8 g/dL (6.4-8.2)
[2018-02-14] MEDS: Carvedilol 6.25 MG Tablet PO SCH ×2 (08:19→21:01)
[2018-02-14] MEDS: Amiodarone 200 MG Tablet PO SCH ×2 (08:20→18:06)
[2018-02-14] MEDS: Docusate Sodium 100 MG Capsule PO SCH (08:24)
[2018-02-14] MEDS: Polyethylene Glycol 3350 17 GM Packet PO SCH (08:25)
[2018-02-14] MEDS: Multivitamin/Minerals Therapeutic Tablet PO SCH (08:28)
--- NOTE | 2018-02-14 08:56 | P.PNCA ---
Subjective Interval history: Telemetry currently shows A. fib, rate [id number]. Patient currently asymptomatic with no palpitations or shortness of breath. She did have some difficulty catching her breath last night. Negative for fluid balance overnight. Physical Exam Vital signs: Vital Signs 02/13/18 09:00 02/13/18 10:00 02/13/18 11:00 Temperature 98.1 F Pulse Rate 152 H 66 68 Respiratory Rate 18 Blood Pressure 118/57 L Pulse Oximetry 98 02/13/18 12:00 02/13/18 13:00 02/13/18 14:00 Temperature Pulse Rate 68 67 67 Respiratory Rate Blood Pressure Pulse Oximetry 02/13/18 15:00 02/13/18 15:52 02/13/18 16:00 Temperature 97.8 F Pulse Rate 66 67 66 Respiratory Rate 18 18 Blood Pressure 108/55 L Pulse Oximetry 97 02/13/18 17:00 02/13/18 18:00 02/13/18 19:00 Temperature 98.3 F Pulse Rate 152 H 108 H 112 H Respiratory Rate 18 Blood Pressure 120/68 Pulse Oximetry 97 02/13/18 20:00 02/13/18 21:00 02/13/18 21:42 Temperature Pulse Rate 110 H 71 71 Respiratory Rate 16 Blood Pressure Pulse Oximetry 95 97 02/13/18 22:00 02/13/18 23:00 02/14/18 00:00 Temperature 98.3 F Pulse Rate 72 72 65 Respiratory Rate 18 Blood Pressure 114/59 L Pulse Oximetry 97 95 02/14/18 01:00 02/14/18 01:46 02/14/18 02:00 Temperature Pulse Rate 66 64 65 Respiratory Rate 18 Blood Pressure Pulse Oximetry 02/14/18 03:00 02/14/18 04:00 02/14/18 05:00 Temperature 98.3 F Pulse Rate 64 63 65 Respiratory Rate 18 Blood Pressure 96/54 L Pulse Oximetry 97 95 02/14/18 07:00 Temperature 97.8 F Pulse Rate 68 Respiratory Rate 17 Blood Pressure 103/58 L Pulse Oximetry 98 Intake & Output 02/13/18 02/14/18 02/14/18 18:59 06:59 18:59 Intake Total 820 / 820 480 / 480 Output Total 1200 / 1200 500 / 500 Balance -380 / -380 -20 / -20 Weight 205 lb 7.533 oz Intake: IV 100 / 100 Cordarone Inj 150 MG In D5W Inj 100 / 100 97 ML @ 600 mls/hr IV.SIG ONCE ONE Rx#:[id number] Oral 720 / 720 480 / 480 Output: Urine 1200 / 1200 500 / 500 Other: Date of Last Bowel Movement 02/13/18 02/14/18 # Bowel Movements 2 Narrative: GENERAL: Well-developed well-nourished. In no acute distress. NECK: No carotid bruits. No JVD. CARDIOVASCULAR: Tachycardic rate and irregular rhythm. No murmur appreciated. RESPIRATORY: No accessory muscle use. Clear to auscultation. Breath sounds equal bilaterally. Occasional wheeze. MUSCULOSKELETAL: No clubbing or cyanosis. No edema. NEUROLOGICAL: Awake and alert. Normal speech. - Urinary Catheter Management Indwelling Temp Sensing Catheter Cath placed during this visit: yes, but has since been removed by the nurse Reason for continuing: Decision to DC catheter Insertion date: 02/06/18 Insertion time: 09:06 Removal date: 02/10/18 Removal time: 16:50 Assessment and Plan - Plan Assessment: Severe POD#6 s/p SAVR with a 21mm Intuity valve Single vessel CAD s/p CABG x 1 SNEED-LAD Post-operative Atrial fibrillation with RVR, CHADS2-VASc 3 New LBBB ADHF, systolic Cardiomyopathy, new with reduced EF to 40% by my visual estimation with noted RWMAs in LAD territory. Suspect either she had a coronary event with [place] versus stress cardiomyopathy to be considered. She is currently chest pain free and improving from a surgical stand point. Would treat with medical management and reassess with TTE in 2 weeks and if LVEF is still reduced, would pursue repeat coronary angiography and possible PCI if indicated. Recommendations: As above and -increase Lasix to 40mg IV to TID until Cr bumps -Stop p.o. amiodarone, give amiodarone IV bolus and resume anemia amiodarone gtt -stopped metoprolol and started carvedilol 6.25mg bid -Digoxin 0.25 mg IV 1 -duoneb treatment for wheeze, pulmonary toilet and Incentive spirometry -continue eliquis 5mg bid -rest per Dr Gold team Discussed Condition With: Patient, RN, Dr. Camp
[2018-02-14] MEDS ORDERED: Digoxin Inj 500 MCG/2 ML Ampul IV.PUSH ONE (08:57)
[2018-02-14] MEDS ORDERED: Amiodarone Inj 150 MG in Dextrose 5% in Water Inj 97 ML IV.SIG ONE ×2 (09:30)
[2018-02-14] MEDS: Insulin NovoLOG Aspart Correctional Sugar Inj SQ SCH ×2 (09:51→12:12)
--- NOTE | 2018-02-14 10:30 | XR ---
EXAM DATE: 02/14/2018 9:53 AM EDT AGE/SEX: 67 years / Female INDICATIONS: . Short of breath. CLINICAL DATA: This is the patient's initial encounter. Patient reports that signs and symptoms have been present for 1 week and indicates a pain score of 0/10. MEDICAL/SURGICAL HISTORY: Hypothyroidism. anxiety, aortic stenosis, hyperlipidemia, thyroid ca. CABG. COMPARISON: [facility] [place], CHEST 1V SINGLE AP, 02/13/2018. . FINDINGS: There is persistent bilateral perihilar and basilar pleural-parenchymal opacity which may be slightly worse on the left on today's film than yesterday. Cardiac contours are grossly stable. There has bee n previous sternotomy. CONCLUSION: Grossly stable abnormal chest appearance Electronically signed by: Florian Ramirez MD 02/14/2018 10:29 AM EDT
[2018-02-14] MEDS ORDERED: Docusate Sodium 100 MG Capsule PO PRN (10:57)
--- NOTE | 2018-02-14 14:38 | P.PNCV ---
- Note Subjective/Hospital Course: A 67-year-old female initially seen 02/02/18 with history of known heart murmur for a number of years, had a new primary care physician and told the nurse practitioner that she apparently had a murmur and they felt that it was more prominent so they sent her for an echocardiogram. The echocardiogram showed severe aortic stenosis with a valve mean gradient of 84 mmHg, aortic valve area 0.52, mild tricuspid valve regurgitation and mild mitral valve regurgitation. Ejection fraction is 60%. She underwent cardiac catheterization for further evaluation. The proximal LAD was 75% stenosed, the circumflex 20%. We were consulted to evaluate for coronary artery bypass graft x 1, possibly 2, with aortic valve replacement. PAST MEDICAL HISTORY: Includes hypertension, hyperlipidemia, anxiety, history of thyroid cancer. 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 02/08 pt electively admitted surgery: AVR with a 21 Intuity tissue valve, CABG x 1, SNEED to LAD, BROOKS 16:20 Called to see patient at approximately 1500 for acute hypotensive episode. She had a respiratory acidosis when she arrived from the OR which has not completely resolved. I emergently Called Dr. Du for a consultation and have been actively resuscitating her subsequently. She has required pressors and does not have a pericardial effusion or any finding which warrants returning her to the OR. I did call the OR emergently and have the CVOR on standby until she is more stable or needs to return to the OR. I suspect she had a hemodynamic spiral with low BP and relatively low coronary perfusion pressure in the face of marked LVH and now, the absence of aortic stenosis. She has become more stable in the last 15-20 minutes. If she has further compromise, I plan toplace a IABP +/-, BROOKS, and possible re-explore her. I have communicated all this with her family. 02/09 pt extubated at 0500 now on 4 liter 02, remains on Ehsan at 40mcq wean off insulin gtt , had episode of Afib, short burst VTach yesterday on amiodarone gtt, ECG shows new L BBB anteroseptal T wave changes received 2 units PRBC and one mike PLT PLT count 90. CXR with some bilateral lower lobe atelectasis , possible infiltrate left lower lobe Keep in ICU today , 02/10/18 Improving, no complaints except feeling weak. 02/11/18 c/o no appetite 02/12 still with some mild nausea went back into Afib RVR this am , amiodarone bolus given, now on 400mg bid all labs stable start lovenox, will need eliquis / fab score 3 02/13 back into afib RVR, on amiodarone gtt, BB increased mag phos TSH pending, consult cardiology add eliquis ambulate , check 2d echo 02/14 Echo low normal LV function worsening CXR / Lasix now tid check BNP in am , continue pulm toileting went back into afib / rvr, restarted on amiodarone gtt then converted again, dose of dig given continue eliquis Objective: Vital Signs - 24 hr 02/13/18 15:00 02/13/18 15:52 02/13/18 16:00 Temperature 97.8 F Pulse Rate 66 67 66 Respiratory Rate 18 18 Blood Pressure 108/55 L Pulse Oximetry 97 02/13/18 17:00 02/13/18 18:00 02/13/18 19:00 Temperature 98.3 F Pulse Rate 152 H 108 H 112 H Respiratory Rate 18 Blood Pressure 120/68 Pulse Oximetry 97 02/13/18 20:00 02/13/18 21:00 02/13/18 21:42 Temperature Pulse Rate 110 H 71 71 Respiratory Rate 16 Blood Pressure Pulse Oximetry 95 97 02/13/18 22:00 02/13/18 23:00 02/14/18 00:00 Temperature 98.3 F Pulse Rate 72 72 65 Respiratory Rate 18 Blood Pressure 114/59 L Pulse Oximetry 97 95 02/14/18 01:00 02/14/18 01:46 02/14/18 02:00 Temperature Pulse Rate 66 64 65 Respiratory Rate 18 Blood Pressure Pulse Oximetry 02/14/18 03:00 02/14/18 04:00 02/14/18 05:00 Temperature 98.3 F Pulse Rate 64 63 65 Respiratory Rate 18 Blood Pressure 96/54 L Pulse Oximetry 97 95 02/14/18 07:00 02/14/18 08:00 02/14/18 09:00 Temperature 97.8 F Pulse Rate 68 130 H 125 H Respiratory Rate 17 Blood Pressure 103/58 L Pulse Oximetry 98 02/14/18 09:01 02/14/18 10:00 02/14/18 11:00 Temperature 97.3 F L Pulse Rate 66 112 H 116 H Respiratory Rate 18 16 Blood Pressure 92/72 L Pulse Oximetry 96 94 L 02/14/18 12:00 02/14/18 13:00 02/14/18 14:00 Temperature Pulse Rate 109 H 59 L 58 L Respiratory Rate Blood Pressure Pulse Oximetry GENERAL: A&O x 3 SKIN: Warm and dry. prevena dressing to chest HEAD: Normocephalic. EYES: No scleral icterus. No injection or drainage. NECK: Supple, trachea midline. No JVD or lymphadenopathy. CARDIOVASCULAR: Regular rate and rhythm without murmurs, gallops, or rubs. Afib> NSR / + 2 edema lower ext RESPIRATORY: Breath sounds equal bilaterally. No accessory muscle use. diminished in bases Left > right bibasilar crackles GASTROINTESTINAL: Abdomen soft, non-tender, nondistended. MUSCULOSKELETAL: No cyanosis, or edema. BACK: Nontender without obvious deformity. No CVA tenderness. Labs: Laboratory Results - last 12 hr 02/14/18 02/14/18 02/14/18 05:02 08:22 11:00 Sodium 136 Potassium 4.2 Chloride 92 L Carbon Dioxide 38.8 H Anion Gap 5 BUN 27 H Creatinine 0.93 Estimated GFR 60 L POC Glucose 125 H 193 H Random Glucose 107 H Calcium 7.4 L* Prot Corrected Calcium 8.7 Total Protein 4.8 L 02/14/18 12:10 Sodium Potassium Chloride Carbon Dioxide Anion Gap BUN Creatinine Estimated GFR POC Glucose 158 H Random Glucose Calcium Prot Corrected Calcium Total Protein Result Diagrams: 02/13/18 05:29 02/14/18 05:02 - Plan (1) S/P AVR Plan: low normal EF (2) S/P CABG x 1 Plan: on ASA, statin PT/ OOB later this am pulm toileting post ECHO 02/08 EF 40% ECHO 02/13 AORTIC VALVE No aortic valve stenosis or regurgitation. (4) CAD (coronary artery disease) Plan: ASA, eliquis, diuresis coreg statin (5) Diastolic heart failure Plan: continue diuresis (6) Hypertension Plan: stable / start low dose BB (7) Hyperlipidemia Plan: on statin (4) CAD (coronary artery disease) Qualifiers: Coronary Disease-Associated Artery/Lesion type: [place] artery (6) Hypertension Qualifiers: Hypertension type: essential hypertension Qualified Code(s): I10 - Essential (primary) hypertension (7) Hyperlipidemia Qualifiers: Hyperlipidemia type: mixed hyperlipidemia Qualified Code(s): E78.2 - Mixed hyperlipidemia
[2018-02-15] MEDS: Amiodarone 200 MG Tablet PO SCH ×2 (00:03→09:45)
[2018-02-15 06:25] LABS: Hematocrit 35.1 % (35.0-46.0); Mean Corpuscular HGB Conc 34.3 % (32.0-36.0); Mean Corpuscular Hemoglobin 31.6 pg (27.0-34.0); Mean Corpuscular Volume 92.1 fL (80.0-100.0); Mean Platelet Volume 9.4 fL (7.0-11.0); Platelet Count 164 th/mm3 (150-450); Red Blood Count 3.81 mil/mm3 (4.00-5.30); Red Cell Distribution Width 13.4 % (11.6-17.2); White Blood Count 10.5 th/mm3 (4.0-11.0)
[2018-02-15 06:50] LABS: Calcium 7.7 mg/dL (8.5-10.1); Carbon Dioxide 37.8 meq/L (21.0-32.0)
--- NOTE | 2018-02-15 08:51 | P.PNCA ---
Subjective Interval history: Patient had some hypotension and bradycardia yesterday, improved with switching amiodarone to oral. Converted to NSR around noontime yesterday and has remained NSR overnight. Rate is controlled in the 70s currently. The patient is feeling like her breathing is better today, still has some orthopnea. Physical Exam Vital signs: Vital Signs 02/14/18 09:00 02/14/18 09:01 02/14/18 10:00 Temperature Pulse Rate 125 H 66 112 H Respiratory Rate 18 Blood Pressure Pulse Oximetry 96 02/14/18 11:00 02/14/18 12:00 02/14/18 13:00 Temperature 97.3 F L Pulse Rate 116 H 109 H 59 L Respiratory Rate 16 Blood Pressure 92/72 L Pulse Oximetry 94 L 02/14/18 14:00 02/14/18 15:00 02/14/18 16:00 Temperature 98.3 F Pulse Rate 58 L 57 L 50 L Respiratory Rate 17 Blood Pressure 106/57 L Pulse Oximetry 97 02/14/18 16:57 02/14/18 19:20 02/14/18 19:40 Temperature 98.8 F Pulse Rate 82 51 L 51 L Respiratory Rate 16 18 Blood Pressure 117/58 L Pulse Oximetry 99 02/14/18 20:00 02/14/18 20:52 02/14/18 21:00 Temperature Pulse Rate 51 L 54 L 52 L Respiratory Rate 16 Blood Pressure Pulse Oximetry 92 L 02/14/18 22:00 02/14/18 23:40 02/15/18 00:32 Temperature 98.2 F Pulse Rate 57 L 58 L 57 L Respiratory Rate 20 Blood Pressure 121/62 Pulse Oximetry 93 L 02/15/18 01:22 02/15/18 02:05 02/15/18 03:20 Temperature 97.9 F Pulse Rate 57 L 58 L 63 Respiratory Rate 21 Blood Pressure 119/58 L Pulse Oximetry 94 L 02/15/18 03:29 02/15/18 04:17 02/15/18 05:16 Temperature Pulse Rate 54 L 63 66 Respiratory Rate 18 Blood Pressure Pulse Oximetry 02/15/18 06:47 02/15/18 07:00 Temperature 98.5 F Pulse Rate 52 L 69 Respiratory Rate 16 Blood Pressure 127/60 Pulse Oximetry 94 L Intake & Output 02/14/18 02/15/18 02/15/18 18:59 06:59 18:59 Intake Total 750 / 750 240 / 240 Output Total 1200 / 1200 400 / 400 Balance -450 / -450 -160 / -160 Weight 207 lb 3.752 oz Intake: IV 300 / 300 Cordarone Inj 450 MG In D5W Inj 200 / 200 241 ML @ 1 MG/MIN 33.33 mls/hr IV.CONT TITRATE PRN Rx#: [id number] Cordarone Inj 150 MG In D5W Inj 100 / 100 97 ML @ 600 mls/hr IV.SIG ONCE ONE Rx#:[id number] Oral 450 / 450 240 / 240 Output: Urine 1200 / 1200 400 / 400 Other: Date of Last Bowel Movement 02/14/18 # Bowel Movements 1 Narrative: GENERAL: Well-developed well-nourished. In no acute distress. NECK: No carotid bruits. No JVD. CARDIOVASCULAR: Regular rate and rhythm. No murmur appreciated. RESPIRATORY: No accessory muscle use. Clear to auscultation. Breath sounds equal bilaterally. MUSCULOSKELETAL: No clubbing or cyanosis. 2+ edema. NEUROLOGICAL: Awake and alert. Normal speech. - Urinary Catheter Management Indwelling Temp Sensing Catheter Cath placed during this visit: yes, but has since been removed by the nurse Reason for continuing: Decision to DC catheter Insertion date: 02/06/18 Insertion time: 09:06 Removal date: 02/10/18 Removal time: 16:50 Assessment and Plan - Plan Assessment: Severe POD#6 s/p SAVR with a 21mm Intuity valve Single vessel CAD s/p CABG x 1 SNEED-LAD Post-operative Atrial fibrillation with RVR, possibly vaguely mediated due to coughing spells, CHADS2-VASc 3 New LBBB ADHF, systolic Cardiomyopathy, new with reduced EF to 40% by my visual estimation with noted RWMAs in LAD territory. Suspect either she had a coronary event with [place] versus stress cardiomyopathy to be considered. She is currently chest pain free and improving from a surgical stand point. Would treat with medical management and reassess with TTE in 2 weeks and if LVEF is still reduced, would pursue repeat coronary angiography and possible PCI if indicated. Recommendations: As above and -Continue Lasix 40mg IV TID until Cr bumps. Monitor I's and O's. -Continue p.o. amiodarone. -Continue carvedilol 6.25mg bid for now with hold parameters -Continue digoxin at 0.125 mg p.o. daily -duoneb treatment for wheeze, pulmonary toilet and Incentive spirometry -continue eliquis 5mg bid -rest per Dr Gold team Discussed Condition With: Patient seen and examined with Dr. Camp, RN at bedside
[2018-02-15] MEDS: Polyethylene Glycol 3350 17 GM Packet PO SCH (09:43)
[2018-02-15] MEDS: Carvedilol 6.25 MG Tablet PO SCH ×2 (09:45→20:46)
[2018-02-15] MEDS: Digoxin 125 MCG Tablet PO SCH (09:46)
[2018-02-15] MEDS: Multivitamin/Minerals Therapeutic Tablet PO SCH (09:46)
[2018-02-15] MEDS ORDERED: Mag Sulf 1 gm/100 ml Premix 100 ML IV.SIG ONE (10:51)
--- NOTE | 2018-02-15 11:19 | XR ---
EXAM DATE: 02/15/2018 11:15 AM EDT AGE/SEX: 67 years / Female INDICATIONS: Short of breath, follow up pulmonary edema CLINICAL DATA: This is the patient's initial encounter. Patient reports that signs and symptoms have been present for 4 - 6 days and indicates a pain score of 7/10. MEDICAL/SURGICAL HISTORY: Cardiovascular disease. aortic stenosis, thyroid cancer, pulmonary em bolus CABG. COMPARISON: [facility] [place], CHEST 2V AP&LAT, 02/14/2018. . FINDINGS: Portable AP view of the chest demonstrates a normal-sized cardiac silhouette post median sternotomy. There is interstitial prominence in a perihilar distribution slightly decreased from yesterday's exam ination. There are bibasilar pleural-parenchymal opacities, also stable. No pneumothorax is identifie d. Bones and soft tissues demonstrate no acute finding. CONCLUSION: Persistent interstitial changes characteristic of pulmonary edema. These changes appear slightly decr eased from yesterday's examination. Stable small bilateral pleural effusions, left larger than right, remain present with adjacent compressive atelectasis. Electronically signed by: Florian Ambrose MD 02/15/2018 11:17 AM EDT
--- NOTE | 2018-02-15 14:58 | P.PNCV ---
- Note Subjective/Hospital Course: A 67-year-old female initially seen 02/02/18 with history of known heart murmur for a number of years, had a new primary care physician and told the nurse practitioner that she apparently had a murmur and they felt that it was more prominent so they sent her for an echocardiogram. The echocardiogram showed severe aortic stenosis with a valve mean gradient of 84 mmHg, aortic valve area 0.52, mild tricuspid valve regurgitation and mild mitral valve regurgitation. Ejection fraction is 60%. She underwent cardiac catheterization for further evaluation. The proximal LAD was 75% stenosed, the circumflex 20%. We were consulted to evaluate for coronary artery bypass graft x 1, possibly 2, with aortic valve replacement. PAST MEDICAL HISTORY: Includes hypertension, hyperlipidemia, anxiety, history of thyroid cancer. 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 02/08 pt electively admitted surgery: AVR with a 21 Intuity tissue valve, CABG x 1, SNEED to LAD, BROOKS 16:20 Called to see patient at approximately 1500 for acute hypotensive episode. She had a respiratory acidosis when she arrived from the OR which has not completely resolved. I emergently Called Dr. Du for a consultation and have been actively resuscitating her subsequently. She has required pressors and does not have a pericardial effusion or any finding which warrants returning her to the OR. I did call the OR emergently and have the CVOR on standby until she is more stable or needs to return to the OR. I suspect she had a hemodynamic spiral with low BP and relatively low coronary perfusion pressure in the face of marked LVH and now, the absence of aortic stenosis. She has become more stable in the last 15-20 minutes. If she has further compromise, I plan toplace a IABP +/-, BROOKS, and possible re-explore her. I have communicated all this with her family. 02/09 pt extubated at 0500 now on 4 liter 02, remains on Ehsan at 40mcq wean off insulin gtt , had episode of Afib, short burst VTach yesterday on amiodarone gtt, ECG shows new L BBB anteroseptal T wave changes received 2 units PRBC and one mike PLT PLT count 90. CXR with some bilateral lower lobe atelectasis , possible infiltrate left lower lobe Keep in ICU today , 02/10/18 Improving, no complaints except feeling weak. 02/11/18 c/o no appetite 02/12 still with some mild nausea went back into Afib RVR this am , amiodarone bolus given, now on 400mg bid all labs stable start lovenox, will need eliquis / fab score 3 02/13 back into afib RVR, on amiodarone gtt, BB increased mag phos TSH pending, consult cardiology add eliquis ambulate , check 2d echo 02/14 Echo low normal LV function worsening CXR / Lasix now tid check BNP in am , continue pulm toileting went back into afib / rvr, restarted on amiodarone gtt then converted again, dose of dig given continue eliquis 02/15 converted to NSR , has some bradycardia last night amiodarone changed to po daily , also on low dose dig and coreg prevena dressing removed CXR noted , has small > mod left effusion/ will recheck xray on monday if still there, may need thoracentesis Objective: Vital Signs - 24 hr 02/14/18 15:00 02/14/18 16:00 02/14/18 16:57 Temperature 98.3 F Pulse Rate 57 L 50 L 82 Respiratory Rate 17 16 Blood Pressure 106/57 L Pulse Oximetry 97 02/14/18 19:20 02/14/18 19:40 02/14/18 20:00 Temperature 98.8 F Pulse Rate 51 L 51 L 51 L Respiratory Rate 18 Blood Pressure 117/58 L Pulse Oximetry 99 02/14/18 20:52 02/14/18 21:00 02/14/18 22:00 Temperature Pulse Rate 54 L 52 L 57 L Respiratory Rate 16 Blood Pressure Pulse Oximetry 92 L 02/14/18 23:40 02/15/18 00:32 02/15/18 01:22 Temperature 98.2 F Pulse Rate 58 L 57 L 57 L Respiratory Rate 20 Blood Pressure 121/62 Pulse Oximetry 93 L 02/15/18 02:05 02/15/18 03:20 02/15/18 03:29 Temperature 97.9 F Pulse Rate 58 L 63 54 L Respiratory Rate 21 18 Blood Pressure 119/58 L Pulse Oximetry 94 L 02/15/18 04:17 02/15/18 05:16 02/15/18 06:47 Temperature Pulse Rate 63 66 52 L Respiratory Rate Blood Pressure Pulse Oximetry 02/15/18 07:00 02/15/18 08:00 02/15/18 09:00 Temperature 98.5 F Pulse Rate 69 70 72 Respiratory Rate 16 Blood Pressure 127/60 Pulse Oximetry 94 L 02/15/18 10:00 02/15/18 11:00 02/15/18 11:27 Temperature 98.0 F Pulse Rate 72 72 Respiratory Rate 16 Blood Pressure 111/59 L Pulse Oximetry 92 L 93 L 02/15/18 12:00 02/15/18 13:00 Temperature Pulse Rate 66 68 Respiratory Rate Blood Pressure Pulse Oximetry GENERAL: A&O x 3 SKIN: Warm and dry. incision intact and well approximated to chest HEAD: Normocephalic. EYES: No scleral icterus. No injection or drainage. NECK: Supple, trachea midline. No JVD or lymphadenopathy. CARDIOVASCULAR: Regular rate and rhythm without murmurs, gallops, or rubs. mild general edema / improving RESPIRATORY: Breath sounds equal bilaterally. No accessory muscle use. diminished in bases , L > right GASTROINTESTINAL: Abdomen soft, non-tender, nondistended. MUSCULOSKELETAL: No cyanosis, or edema. BACK: Nontender without obvious deformity. No CVA tenderness. Labs: Laboratory Results - last 12 hr 02/15/18 02/15/18 06:13 06:13 WBC 10.5 RBC 3.81 L Hgb 12.0 Hct 35.1 MCV 92.1 MCH 31.6 MCHC 34.3 RDW 13.4 Plt Count 164 MPV 9.4 Sodium 136 Potassium 4.0 Chloride 92 L Carbon Dioxide 37.8 H Anion Gap 6 BUN 24 H Creatinine 0.72 Estimated GFR 81 L Random Glucose 96 Calcium 7.7 L Magnesium 2.0 Result Diagrams: 02/15/18 06:13 02/15/18 06:13 - Plan (1) S/P AVR Plan: low normal EF (2) S/P CABG x 1 Plan: on ASA, statin PT/ OOB later this am pulm toileting post ECHO 02/08 EF 40% ECHO 02/13 AORTIC VALVE No aortic valve stenosis or regurgitation. on lasix tid (4) CAD (coronary artery disease) Plan: ASA, eliquis, diuresis coreg statin (5) Diastolic heart failure Plan: continue diuresis coreg (6) Hypertension Plan: stable / start low dose BB (7) Hyperlipidemia Plan: on statin (4) CAD (coronary artery disease) Qualifiers: Coronary Disease-Associated Artery/Lesion type: [place] artery (6) Hypertension Qualifiers: Hypertension type: essential hypertension Qualified Code(s): I10 - Essential (primary) hypertension (7) Hyperlipidemia Qualifiers: Hyperlipidemia type: mixed hyperlipidemia Qualified Code(s): E78.2 - Mixed hyperlipidemia
[2018-02-16 05:16] LABS: Calcium 7.3 mg/dL (8.5-10.1); Carbon Dioxide 41.1 meq/L (21.0-32.0); Potassium 3.6 meq/L (3.5-5.1)
[2018-02-16] MEDS: Amiodarone 200 MG Tablet PO SCH ×3 (07:30→09:12)
[2018-02-16] MEDS: Digoxin 125 MCG Tablet PO SCH ×3 (07:30→09:12)
[2018-02-16] MEDS: Multivitamin/Minerals Therapeutic Tablet PO SCH ×3 (07:31→09:13)
[2018-02-16] MEDS: Carvedilol 6.25 MG Tablet PO SCH ×3 (07:48→22:12)
--- NOTE | 2018-02-16 07:54 | P.PNCA ---
<Leander Temple - Last Filed: 02/16/18 08:51> Subjective Interval history: Ambulated to the restroom this morning shortly after 7, felt dizzy, went back into A. fib RVR. Otherwise, she states that she is breathing much better overnight which helped her sleep. She put out 4000 cc since yesterday. Physical Exam Vital signs: Vital Signs 02/15/18 08:00 02/15/18 09:00 02/15/18 10:00 Temperature Pulse Rate 70 72 72 Respiratory Rate Blood Pressure Pulse Oximetry 02/15/18 11:00 02/15/18 11:27 02/15/18 12:00 Temperature 98.0 F Pulse Rate 72 66 Respiratory Rate 16 Blood Pressure 111/59 L Pulse Oximetry 92 L 93 L 02/15/18 13:00 02/15/18 15:00 02/15/18 16:00 Temperature 98.1 F Pulse Rate 68 57 L 66 Respiratory Rate 16 Blood Pressure 106/57 L Pulse Oximetry 97 02/15/18 16:04 02/15/18 18:00 02/15/18 18:20 Temperature Pulse Rate 71 70 Respiratory Rate 17 Blood Pressure 115/65 Pulse Oximetry 02/15/18 19:40 02/15/18 20:00 02/15/18 20:33 Temperature 98.0 F Pulse Rate 75 62 70 Respiratory Rate 20 16 Blood Pressure 125/79 Pulse Oximetry 98 02/15/18 21:00 02/15/18 22:00 02/15/18 23:10 Temperature Pulse Rate 64 67 65 Respiratory Rate Blood Pressure Pulse Oximetry 02/15/18 23:20 02/16/18 00:52 02/16/18 01:02 Temperature 98.3 F Pulse Rate 66 68 67 Respiratory Rate 21 Blood Pressure 98/55 L Pulse Oximetry 96 02/16/18 02:30 02/16/18 03:30 02/16/18 04:58 Temperature 97.9 F Pulse Rate 66 63 65 Respiratory Rate 20 Blood Pressure 119/58 L Pulse Oximetry 94 L 02/16/18 05:23 02/16/18 06:43 Temperature Pulse Rate 65 104 H Respiratory Rate Blood Pressure Pulse Oximetry Intake & Output 02/15/18 02/16/18 02/16/18 18:59 06:59 18:59 Intake Total 940 / 940 330 / 330 Output Total 2525 / 2525 1550 / 1550 Balance -1585 / -1585 -1220 / -1220 Weight 205 lb 0.478 oz Intake: IV 100 / 100 Magnesium Sulfate 1 gm/D5W 100 100 / 100 ml Premix 100 ML @ 100 mls/hr IV.SIG ONCE ONE Rx#:[id number] Oral 840 / 840 330 / 330 Output: Urine 2525 / 2525 1550 / 1550 Narrative: GENERAL: Well-developed well-nourished. In no acute distress. NECK: No carotid bruits. No JVD. CARDIOVASCULAR: Tachycardic rate and irregular rhythm. No murmur appreciated. RESPIRATORY: No accessory muscle use. Clear to auscultation. Breath sounds equal bilaterally. MUSCULOSKELETAL: No clubbing or cyanosis. 1+ edema. NEUROLOGICAL: Awake and alert. Normal speech. - Urinary Catheter Management Indwelling Temp Sensing Catheter Cath placed during this visit: yes, but has since been removed by the nurse Reason for continuing: Decision to DC catheter Insertion date: 02/06/18 Insertion time: 09:06 Removal date: 02/10/18 Removal time: 16:50 Assessment and Plan - Plan Assessment: Severe POD#6 s/p SAVR with a 21mm Intuity valve Single vessel CAD s/p CABG x 1 SNEED-LAD Post-operative Atrial fibrillation with RVR, possibly vagally mediated due to coughing spells, CHADS2-VASc 3 New LBBB ADHF, systolic Cardiomyopathy, new with reduced EF to 40% by my visual estimation with noted RWMAs in LAD territory. Suspect either she had a coronary event with CO versus stress cardiomyopathy to be considered. She is currently chest pain free and improving from a surgical stand point. Would treat with medical management and reassess with TTE in 2 weeks and if LVEF is still reduced, would pursue repeat coronary angiography and possible PCI if indicated. Recommendations: As above and -Continue Lasix 40mg IV TID until Cr bumps. Monitor I's and O's. -On p.o. amiodarone 400 mg daily. -On carvedilol 6.25mg bid with hold parameters -On digoxin at 0.125 mg p.o. daily -continue Eliquis 5mg bid -rest per Dr Gold team Discussed Condition With: Patient, RN, Dr. Camp <Minor,Lew - Last Filed: 02/16/18 10:54> Physical Exam Vital signs: Vital Signs 02/15/18 11:00 02/15/18 11:27 02/15/18 12:00 Temperature 98.0 F Pulse Rate 72 66 Respiratory Rate 16 Blood Pressure 111/59 L Pulse Oximetry 92 L 93 L 02/15/18 13:00 02/15/18 15:00 02/15/18 16:00 Temperature 98.1 F Pulse Rate 68 57 L 66 Respiratory Rate 16 Blood Pressure 106/57 L Pulse Oximetry 97 02/15/18 16:04 02/15/18 18:00 02/15/18 18:20 Temperature Pulse Rate 71 70 Respiratory Rate 17 Blood Pressure 115/65 Pulse Oximetry 02/15/18 19:40 02/15/18 20:00 02/15/18 20:33 Temperature 98.0 F Pulse Rate 75 62 70 Respiratory Rate 20 16 Blood Pressure 125/79 Pulse Oximetry 98 02/15/18 21:00 02/15/18 22:00 02/15/18 23:10 Temperature Pulse Rate 64 67 65 Respiratory Rate Blood Pressure Pulse Oximetry 02/15/18 23:20 02/16/18 00:52 02/16/18 01:02 Temperature 98.3 F Pulse Rate 66 68 67 Respiratory Rate 21 Blood Pressure 98/55 L Pulse Oximetry 96 02/16/18 02:30 02/16/18 03:30 02/16/18 04:58 Temperature 97.9 F Pulse Rate 66 63 65 Respiratory Rate 20 Blood Pressure 119/58 L Pulse Oximetry 94 L 02/16/18 05:23 02/16/18 06:43 02/16/18 07:00 Temperature 97.7 F Pulse Rate 65 104 H 96 H Respiratory Rate 18 Blood Pressure 102/65 Pulse Oximetry 97 02/16/18 08:00 02/16/18 09:00 02/16/18 10:00 Temperature Pulse Rate 122 H 117 H 103 H Respiratory Rate Blood Pressure Pulse Oximetry 02/16/18 10:02 02/16/18 10:28 Temperature 98.0 F Pulse Rate 72 74 Respiratory Rate 16 18 Blood Pressure 105/66 Pulse Oximetry 91 L 95 Intake & Output 02/15/18 02/16/18 02/16/18 18:59 06:59 18:59 Intake Total 940 / 940 330 / 330 Output Total 2525 / 2525 1550 / 1550 Balance -1585 / -1585 -1220 / -1220 Weight 93 kg 88.3 kg Intake: IV 100 / 100 Magnesium Sulfate 1 gm/D5W 100 100 / 100 ml Premix 100 ML @ 100 mls/hr IV.SIG ONCE ONE Rx#:[id number] Oral 840 / 840 330 / 330 Output: Urine 2525 / 2525 1550 / 1550 - Urinary Catheter Management Indwelling Temp Sensing Catheter Cath placed during this visit: no Assessment and Plan - Plan agree with above continue BB and dig follow dig level continue diuresis will sign off available for questions over weekend fu echo as outpatient
[2018-02-16] MEDS: Polyethylene Glycol 3350 17 GM Packet PO SCH (09:12)
[2018-02-16 10:58] LABS: Phosphorus 3.4 mg/dL (2.5-4.9)
--- NOTE | 2018-02-16 15:08 | P.PNCV ---
- Note Subjective/Hospital Course: A 67-year-old female initially seen 02/02/18 with history of known heart murmur for a number of years, had a new primary care physician and told the nurse practitioner that she apparently had a murmur and they felt that it was more prominent so they sent her for an echocardiogram. The echocardiogram showed severe aortic stenosis with a valve mean gradient of 84 mmHg, aortic valve area 0.52, mild tricuspid valve regurgitation and mild mitral valve regurgitation. Ejection fraction is 60%. She underwent cardiac catheterization for further evaluation. The proximal LAD was 75% stenosed, the circumflex 20%. We were consulted to evaluate for coronary artery bypass graft x 1, possibly 2, with aortic valve replacement. PAST MEDICAL HISTORY: Includes hypertension, hyperlipidemia, anxiety, history of thyroid cancer. 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 02/08 pt electively admitted surgery: AVR with a 21 Intuity tissue valve, CABG x 1, SNEED to LAD, BROOKS 16:20 Called to see patient at approximately 1500 for acute hypotensive episode. She had a respiratory acidosis when she arrived from the OR which has not completely resolved. I emergently Called Dr. Du for a consultation and have been actively resuscitating her subsequently. She has required pressors and does not have a pericardial effusion or any finding which warrants returning her to the OR. I did call the OR emergently and have the CVOR on standby until she is more stable or needs to return to the OR. I suspect she had a hemodynamic spiral with low BP and relatively low coronary perfusion pressure in the face of marked LVH and now, the absence of aortic stenosis. She has become more stable in the last 15-20 minutes. If she has further compromise, I plan toplace a IABP +/-, BROOKS, and possible re-explore her. I have communicated all this with her family. 02/09 pt extubated at 0500 now on 4 liter 02, remains on Eshan at 40mcq wean off insulin gtt , had episode of Afib, short burst VTach yesterday on amiodarone gtt, ECG shows new L BBB anteroseptal T wave changes received 2 units PRBC and one mike PLT PLT count 90. CXR with some bilateral lower lobe atelectasis , possible infiltrate left lower lobe Keep in ICU today , 02/10/18 Improving, no complaints except feeling weak. 02/11/18 c/o no appetite 02/12 still with some mild nausea went back into Afib RVR this am , amiodarone bolus given, now on 400mg bid all labs stable start lovenox, will need eliquis / fab score 3 02/13 back into afib RVR, on amiodarone gtt, BB increased mag phos TSH pending, consult cardiology add eliquis ambulate , check 2d echo 02/14 Echo low normal LV function worsening CXR / Lasix now tid check BNP in am , continue pulm toileting went back into afib / rvr, restarted on amiodarone gtt then converted again, dose of dig given continue eliquis 02/15 converted to NSR , has some bradycardia last night amiodarone changed to po daily , also on low dose dig and coreg prevena dressing removed CXR noted , has small > mod left effusion/ will recheck xray on monday if still there, may need thoracentesis 02/16 slight improvement , still in intermittent afib / mainly with coughing and exertion renal indices stable/ discussed with Dr Camp/ keep lasix TID , continue amiodarone increase digoxin f/u CXR pending on monday continue PT/OT Objective: Vital Signs - 24 hr 02/15/18 16:00 02/15/18 16:04 02/15/18 18:00 Temperature Pulse Rate 66 71 70 Respiratory Rate 17 Blood Pressure Pulse Oximetry 02/15/18 18:20 02/15/18 19:40 02/15/18 20:00 Temperature 98.0 F Pulse Rate 75 62 Respiratory Rate 20 Blood Pressure 115/65 125/79 Pulse Oximetry 98 02/15/18 20:33 02/15/18 21:00 02/15/18 22:00 Temperature Pulse Rate 70 64 67 Respiratory Rate 16 Blood Pressure Pulse Oximetry 02/15/18 23:10 02/15/18 23:20 02/16/18 00:52 Temperature 98.3 F Pulse Rate 65 66 68 Respiratory Rate 21 Blood Pressure 98/55 L Pulse Oximetry 96 02/16/18 01:02 02/16/18 02:30 02/16/18 03:30 Temperature 97.9 F Pulse Rate 67 66 63 Respiratory Rate 20 Blood Pressure 119/58 L Pulse Oximetry 94 L 02/16/18 04:58 02/16/18 05:23 02/16/18 06:43 Temperature Pulse Rate 65 65 104 H Respiratory Rate Blood Pressure Pulse Oximetry 02/16/18 07:00 02/16/18 08:00 02/16/18 09:00 Temperature 97.7 F Pulse Rate 96 H 122 H 117 H Respiratory Rate 18 Blood Pressure 102/65 Pulse Oximetry 97 02/16/18 10:00 02/16/18 10:02 02/16/18 10:28 Temperature 98.0 F Pulse Rate 103 H 72 74 Respiratory Rate 16 18 Blood Pressure 105/66 Pulse Oximetry 91 L 95 02/16/18 11:35 02/16/18 12:27 02/16/18 14:00 Temperature Pulse Rate 89 109 H 103 H Respiratory Rate Blood Pressure Pulse Oximetry 02/16/18 15:00 Temperature 97.8 F Pulse Rate 98 H Respiratory Rate 18 Blood Pressure 85/54 L Pulse Oximetry 98 GENERAL: A&O x 3 SKIN: Warm and dry. incision intact to sternum, HEAD: Normocephalic. EYES: No scleral icterus. No injection or drainage. NECK: Supple, trachea midline. No JVD or lymphadenopathy. CARDIOVASCULAR: Regular rate and rhythm without murmurs, gallops, or rubs. mild general edema RESPIRATORY: Breath sounds equal bilaterally. No accessory muscle use. few crackles in the bases, left more diminished than the right GASTROINTESTINAL: Abdomen soft, non-tender, nondistended. MUSCULOSKELETAL: No cyanosis, or edema. BACK: Nontender without obvious deformity. No CVA tenderness. Labs: Laboratory Results - last 12 hr 02/16/18 02/16/18 04:26 04:26 Sodium 136 Potassium 3.6 Chloride 90 L Carbon Dioxide 41.1 H Anion Gap 5 BUN 19 H Creatinine 0.88 Estimated GFR 64 L Random Glucose 107 H Calcium 7.3 L* Prot Corrected Calcium 8.5 Phosphorus 3.4 Magnesium 2.0 Total Protein 5.0 L Result Diagrams: 02/15/18 06:13 02/16/18 04:26 Telemetry: Afib > NSR> afib LBBB - Plan (1) S/P AVR Plan: low normal EF (2) S/P CABG x 1 Plan: on ASA, statin PT/ OOB later this am pulm toileting post ECHO 02/08 EF 40% ECHO 02/13 AORTIC VALVE No aortic valve stenosis or regurgitation. low normal EF on lasix tid (4) CAD (coronary artery disease) Plan: ASA, eliquis, diuresis coreg statin (5) Diastolic heart failure Plan: continue diuresis coreg (6) Hypertension Plan: stable / start low dose BB (7) Hyperlipidemia Plan: on statin (8) Atrial fibrillation Plan: amiodarone / digoxin / check level in am eliquis (4) CAD (coronary artery disease) Qualifiers: Coronary Disease-Associated Artery/Lesion type: [place] artery (6) Hypertension Qualifiers: Hypertension type: essential hypertension Qualified Code(s): I10 - Essential (primary) hypertension (7) Hyperlipidemia Qualifiers: Hyperlipidemia type: mixed hyperlipidemia Qualified Code(s): E78.2 - Mixed hyperlipidemia
[2018-02-16] MEDS ORDERED: Digoxin 125 MCG Tablet PO ONE (16:00)
[2018-02-17] MEDS: ALPRAZolam 0.5 MG Tablet PO PRN (03:50)
[2018-02-17 05:46] LABS: Calcium 7.5 mg/dL (8.5-10.1); Carbon Dioxide 42.1 meq/L (21.0-32.0); Magnesium 2.1 mg/dL (1.5-2.5); Potassium 3.4 meq/L (3.5-5.1)
[2018-02-17 06:00] LABS: Digoxin 0.8 ng/mL (0.8-2.0)
[2018-02-17] MEDS: Multivitamin/Minerals Therapeutic Tablet PO SCH (09:26)
[2018-02-17] MEDS: Carvedilol 6.25 MG Tablet PO SCH ×2 (09:26→21:18)
[2018-02-17] MEDS: Amiodarone 200 MG Tablet PO SCH (09:27)
[2018-02-17] MEDS: Digoxin 125 MCG Tablet PO SCH (09:27)
[2018-02-17] MEDS: Polyethylene Glycol 3350 17 GM Packet PO SCH (09:29)
--- NOTE | 2018-02-17 09:56 | P.PNCV ---
- Note Subjective/Hospital Course: A 67-year-old female initially seen 02/02/18 with history of known heart murmur for a number of years, had a new primary care physician and told the nurse practitioner that she apparently had a murmur and they felt that it was more prominent so they sent her for an echocardiogram. The echocardiogram showed severe aortic stenosis with a valve mean gradient of 84 mmHg, aortic valve area 0.52, mild tricuspid valve regurgitation and mild mitral valve regurgitation. Ejection fraction is 60%. She underwent cardiac catheterization for further evaluation. The proximal LAD was 75% stenosed, the circumflex 20%. We were consulted to evaluate for coronary artery bypass graft x 1, possibly 2, with aortic valve replacement. PAST MEDICAL HISTORY: Includes hypertension, hyperlipidemia, anxiety, history of thyroid cancer. 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 02/08 pt electively admitted surgery: AVR with a 21 Intuity tissue valve, CABG x 1, SNEED to LAD, BROOKS 16:20 Called to see patient at approximately 1500 for acute hypotensive episode. She had a respiratory acidosis when she arrived from the OR which has not completely resolved. I emergently Called Dr. Du for a consultation and have been actively resuscitating her subsequently. She has required pressors and does not have a pericardial effusion or any finding which warrants returning her to the OR. I did call the OR emergently and have the CVOR on standby until she is more stable or needs to return to the OR. I suspect she had a hemodynamic spiral with low BP and relatively low coronary perfusion pressure in the face of marked LVH and now, the absence of aortic stenosis. She has become more stable in the last 15-20 minutes. If she has further compromise, I plan toplace a IABP +/-, BROOKS, and possible re-explore her. I have communicated all this with her family. 02/09 pt extubated at 0500 now on 4 liter 02, remains on Ehsan at 40mcq wean off insulin gtt , had episode of Afib, short burst VTach yesterday on amiodarone gtt, ECG shows new L BBB anteroseptal T wave changes received 2 units PRBC and one mike PLT PLT count 90. CXR with some bilateral lower lobe atelectasis , possible infiltrate left lower lobe Keep in ICU today , 02/10/18 Improving, no complaints except feeling weak. 02/11/18 c/o no appetite 02/12 still with some mild nausea went back into Afib RVR this am , amiodarone bolus given, now on 400mg bid all labs stable start lovenox, will need eliquis / fab score 3 02/13 back into afib RVR, on amiodarone gtt, BB increased mag phos TSH pending, consult cardiology add eliquis ambulate , check 2d echo 02/14 Echo low normal LV function worsening CXR / Lasix now tid check BNP in am , continue pulm toileting went back into afib / rvr, restarted on amiodarone gtt then converted again, dose of dig given continue eliquis 02/15 converted to NSR , has some bradycardia last night amiodarone changed to po daily , also on low dose dig and coreg prevena dressing removed CXR noted , has small > mod left effusion/ will recheck xray on monday if still there, may need thoracentesis 02/16 slight improvement , still in intermittent afib / mainly with coughing and exertion renal indices stable/ discussed with Dr Camp/ keep lasix TID , continue amiodarone increase digoxin f/u CXR pending on monday continue PT/OT 02/17 Clinical stable In normal sinus rhythm this morning Needs pulmonary toiletry Ambulate Repeat chest x-ray in the morning Objective: Vital Signs - 24 hr 02/16/18 10:00 02/16/18 10:02 02/16/18 10:28 Temperature 98.0 F Pulse Rate 103 H 72 74 Respiratory Rate 16 18 Blood Pressure 105/66 Pulse Oximetry 91 L 95 02/16/18 11:35 02/16/18 12:27 02/16/18 14:00 Temperature Pulse Rate 89 109 H 103 H Respiratory Rate Blood Pressure Pulse Oximetry 02/16/18 15:00 02/16/18 15:25 02/16/18 15:39 Temperature 97.8 F Pulse Rate 98 H 67 112 H Respiratory Rate 18 16 Blood Pressure 85/54 L Pulse Oximetry 98 95 02/16/18 17:00 02/16/18 17:44 02/16/18 19:00 Temperature 98.5 F Pulse Rate 71 74 77 Respiratory Rate 22 Blood Pressure 120/56 L Pulse Oximetry 94 L 02/16/18 20:00 02/16/18 20:56 02/16/18 21:00 Temperature Pulse Rate 66 74 64 Respiratory Rate 18 Blood Pressure Pulse Oximetry 02/16/18 22:00 02/16/18 23:00 02/17/18 00:00 Temperature 98.3 F Pulse Rate 72 79 66 Respiratory Rate 18 Blood Pressure 105/71 Pulse Oximetry 99 02/17/18 01:00 02/17/18 02:00 02/17/18 03:00 Temperature 97.9 F Pulse Rate 62 60 75 Respiratory Rate 20 Blood Pressure 114/56 L Pulse Oximetry 94 L 02/17/18 03:53 02/17/18 04:00 02/17/18 05:00 Temperature Pulse Rate 74 71 63 Respiratory Rate 16 Blood Pressure Pulse Oximetry 02/17/18 06:00 02/17/18 07:00 02/17/18 09:53 Temperature 98.2 F Pulse Rate 68 73 70 Respiratory Rate 18 16 Blood Pressure 110/57 L Pulse Oximetry 96 95 Labs: Laboratory Results - last 12 hr 02/17/18 05:00 Sodium 137 Potassium 3.4 L Chloride 91 L Carbon Dioxide 42.1 H Anion Gap 4 L BUN 17 Creatinine 0.89 Estimated GFR 63 L Random Glucose 130 H Calcium 7.5 L Phosphorus 3.0 Magnesium 2.1 Digoxin 0.8 Result Diagrams: 02/15/18 06:13 02/17/18 05:00 - Plan (1) S/P AVR Plan: low normal EF (2) S/P CABG x 1 Plan: on ASA, statin PT/ OOB later this am pulm toileting post ECHO 02/08 EF 40% ECHO 02/13 AORTIC VALVE No aortic valve stenosis or regurgitation. low normal EF on lasix tid (4) CAD (coronary artery disease) Plan: ASA, eliquis, diuresis coreg statin (5) Diastolic heart failure Plan: continue diuresis coreg (6) Hypertension Plan: stable / start low dose BB (7) Hyperlipidemia Plan: on statin (8) Atrial fibrillation Plan: amiodarone / digoxin / check level in am eliquis (4) CAD (coronary artery disease) Qualifiers: Coronary Disease-Associated Artery/Lesion type: [place] artery (6) Hypertension Qualifiers: Hypertension type: essential hypertension Qualified Code(s): I10 - Essential (primary) hypertension (7) Hyperlipidemia Qualifiers: Hyperlipidemia type: mixed hyperlipidemia Qualified Code(s): E78.2 - Mixed hyperlipidemia
--- NOTE | 2018-02-18 06:33 | XR ---
EXAM DATE: 02/18/2018 6:27 AM EDT AGE/SEX: 67 years / Female INDICATIONS: Shortness of breath, possible pulmonary disease. CLINICAL DATA: This is the patient's subsequent encounter. Patient reports that signs and symptoms h ave been present for 1 week and indicates a pain score of 3/10. MEDICAL/SURGICAL HISTORY: . Cardiovascular disease. Aortic stenosis, thyroid cancer, pulmonary embolus CABG. COMPARISON: [facility] [place]ST 1V SINGLE AP, 02/15/2018. . FINDINGS: The patient is status post sternotomy. The heart size is not enlarged. There is mild hazy increased d ensity throughout much of the left chest being worse at the left base. There are some minimal increas ed density at the right base. The right upper and midlung are clear. CONCLUSION: Increased density seen throughout the left chest likely related to some degree of fusion. Some superi mposed atelectasis or consolidation at the left base should also be considered. Suspected minimal atelectasis or consolidation at the medial right lung base. Electronically signed by: Florian Nick MD 02/18/2018 6:31 AM EDT
--- NOTE | 2018-02-18 09:46 | P.PNCV ---
- Note Subjective/Hospital Course: A 67-year-old female initially seen 02/02/18 with history of known heart murmur for a number of years, had a new primary care physician and told the nurse practitioner that she apparently had a murmur and they felt that it was more prominent so they sent her for an echocardiogram. The echocardiogram showed severe aortic stenosis with a valve mean gradient of 84 mmHg, aortic valve area 0.52, mild tricuspid valve regurgitation and mild mitral valve regurgitation. Ejection fraction is 60%. She underwent cardiac catheterization for further evaluation. The proximal LAD was 75% stenosed, the circumflex 20%. We were consulted to evaluate for coronary artery bypass graft x 1, possibly 2, with aortic valve replacement. PAST MEDICAL HISTORY: Includes hypertension, hyperlipidemia, anxiety, history of thyroid cancer. 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 02/08 pt electively admitted surgery: AVR with a 21 Intuity tissue valve, CABG x 1, SNEED to LAD, BROOKS 16:20 Called to see patient at approximately 1500 for acute hypotensive episode. She had a respiratory acidosis when she arrived from the OR which has not completely resolved. I emergently Called Dr. Du for a consultation and have been actively resuscitating her subsequently. She has required pressors and does not have a pericardial effusion or any finding which warrants returning her to the OR. I did call the OR emergently and have the CVOR on standby until she is more stable or needs to return to the OR. I suspect she had a hemodynamic spiral with low BP and relatively low coronary perfusion pressure in the face of marked LVH and now, the absence of aortic stenosis. She has become more stable in the last 15-20 minutes. If she has further compromise, I plan toplace a IABP +/-, BROOKS, and possible re-explore her. I have communicated all this with her family. 02/09 pt extubated at 0500 now on 4 liter 02, remains on Ehsan at 40mcq wean off insulin gtt , had episode of Afib, short burst VTach yesterday on amiodarone gtt, ECG shows new L BBB anteroseptal T wave changes received 2 units PRBC and one mike PLT PLT count 90. CXR with some bilateral lower lobe atelectasis , possible infiltrate left lower lobe Keep in ICU today , 02/10/18 Improving, no complaints except feeling weak. 02/11/18 c/o no appetite 02/12 still with some mild nausea went back into Afib RVR this am , amiodarone bolus given, now on 400mg bid all labs stable start lovenox, will need eliquis / fab score 3 02/13 back into afib RVR, on amiodarone gtt, BB increased mag phos TSH pending, consult cardiology add eliquis ambulate , check 2d echo 02/14 Echo low normal LV function worsening CXR / Lasix now tid check BNP in am , continue pulm toileting went back into afib / rvr, restarted on amiodarone gtt then converted again, dose of dig given continue eliquis 02/15 converted to NSR , has some bradycardia last night amiodarone changed to po daily , also on low dose dig and coreg prevena dressing removed CXR noted , has small > mod left effusion/ will recheck xray on monday if still there, may need thoracentesis 02/16 slight improvement , still in intermittent afib / mainly with coughing and exertion renal indices stable/ discussed with Dr Camp/ keep lasix TID , continue amiodarone increase digoxin f/u CXR pending on monday continue PT/OT 02/17 Clinical stable In normal sinus rhythm this morning Needs pulmonary toiletry Ambulate Repeat chest x-ray in the morning 02/18 Doing well Ambulating in D/C [facility] tomorrow Objective: Vital Signs - 24 hr 02/17/18 09:53 02/17/18 10:00 02/17/18 11:00 Temperature 98 F Pulse Rate 70 70 74 Respiratory Rate 16 20 Blood Pressure 119/66 Pulse Oximetry 95 02/17/18 12:00 02/17/18 13:00 02/17/18 14:00 Temperature Pulse Rate 70 74 70 Respiratory Rate Blood Pressure Pulse Oximetry 02/17/18 15:00 02/17/18 16:00 02/17/18 16:03 Temperature 98 F Pulse Rate 72 72 71 Respiratory Rate 18 16 Blood Pressure 125/65 Pulse Oximetry 95 02/17/18 17:00 02/17/18 18:00 02/17/18 19:00 Temperature 99.4 F Pulse Rate 74 74 69 Respiratory Rate 18 Blood Pressure 103/57 L Pulse Oximetry 95 02/17/18 20:00 02/17/18 20:25 02/17/18 21:00 Temperature Pulse Rate 72 68 72 Respiratory Rate 18 Blood Pressure Pulse Oximetry 93 L 02/17/18 22:00 02/17/18 23:00 02/18/18 00:00 Temperature 98.4 F Pulse Rate 75 66 63 Respiratory Rate 16 Blood Pressure 104/55 L Pulse Oximetry 96 02/18/18 01:00 02/18/18 02:00 02/18/18 03:00 Temperature 98.6 F Pulse Rate 63 63 69 Respiratory Rate 16 Blood Pressure 112/58 L Pulse Oximetry 95 02/18/18 03:57 02/18/18 04:00 02/18/18 05:00 Temperature Pulse Rate 68 65 69 Respiratory Rate 18 Blood Pressure Pulse Oximetry 02/18/18 06:04 02/18/18 07:00 02/18/18 08:00 Temperature 98.6 F Pulse Rate 66 69 68 Respiratory Rate 18 Blood Pressure 112/59 L Pulse Oximetry 95 02/18/18 08:09 02/18/18 09:00 Temperature Pulse Rate 68 70 Respiratory Rate 16 Blood Pressure Pulse Oximetry 96 Result Diagrams: 02/15/18 06:13 02/17/18 05:00 - Plan (1) S/P AVR Plan: low normal EF (2) S/P CABG x 1 Plan: on ASA, statin PT/ OOB later this am pulm toileting post ECHO 02/08 EF 40% ECHO 02/13 AORTIC VALVE No aortic valve stenosis or regurgitation. low normal EF on lasix tid (4) CAD (coronary artery disease) Plan: ASA, eliquis, diuresis coreg statin (5) Diastolic heart failure Plan: continue diuresis coreg (6) Hypertension Plan: stable / start low dose BB (7) Hyperlipidemia Plan: on statin (8) Atrial fibrillation Plan: amiodarone / digoxin / check level in am eliquis (4) CAD (coronary artery disease) Qualifiers: Coronary Disease-Associated Artery/Lesion type: [place] artery (6) Hypertension Qualifiers: Hypertension type: essential hypertension Qualified Code(s): I10 - Essential (primary) hypertension (7) Hyperlipidemia Qualifiers: Hyperlipidemia type: mixed hyperlipidemia Qualified Code(s): E78.2 - Mixed hyperlipidemia
[2018-02-18] MEDS: Amiodarone 200 MG Tablet PO SCH (12:28)
[2018-02-18] MEDS: Digoxin 125 MCG Tablet PO SCH (12:28)
[2018-02-18] MEDS: Carvedilol 6.25 MG Tablet PO SCH ×2 (12:28→20:15)
[2018-02-18] MEDS: Polyethylene Glycol 3350 17 GM Packet PO SCH (12:29)
[2018-02-18] MEDS: Multivitamin/Minerals Therapeutic Tablet PO SCH (12:29)
[2018-02-19] MEDS: Digoxin 125 MCG Tablet PO SCH (09:30)
[2018-02-19] MEDS: Amiodarone 200 MG Tablet PO SCH ×2 (09:30→21:59)
[2018-02-19] MEDS: Multivitamin/Minerals Therapeutic Tablet PO SCH (09:30)
[2018-02-19] MEDS: Carvedilol 6.25 MG Tablet PO SCH ×2 (09:30→21:59)
[2018-02-19 12:24] LABS: Calcium 8.2 mg/dL (8.5-10.1); Carbon Dioxide 40.6 meq/L (21.0-32.0); Potassium 3.8 meq/L (3.5-5.1)
--- NOTE | 2018-02-19 16:01 | P.PNCV ---
- Note Subjective/Hospital Course: A 67-year-old female initially seen 02/02/18 with history of known heart murmur for a number of years, had a new primary care physician and told the nurse practitioner that she apparently had a murmur and they felt that it was more prominent so they sent her for an echocardiogram. The echocardiogram showed severe aortic stenosis with a valve mean gradient of 84 mmHg, aortic valve area 0.52, mild tricuspid valve regurgitation and mild mitral valve regurgitation. Ejection fraction is 60%. She underwent cardiac catheterization for further evaluation. The proximal LAD was 75% stenosed, the circumflex 20%. We were consulted to evaluate for coronary artery bypass graft x 1, possibly 2, with aortic valve replacement. PAST MEDICAL HISTORY: Includes hypertension, hyperlipidemia, anxiety, history of thyroid cancer. 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 02/08 pt electively admitted surgery: AVR with a 21 Intuity tissue valve, CABG x 1, SNEED to LAD, BROOKS 16:20 Called to see patient at approximately 1500 for acute hypotensive episode. She had a respiratory acidosis when she arrived from the OR which has not completely resolved. I emergently Called Dr. Du for a consultation and have been actively resuscitating her subsequently. She has required pressors and does not have a pericardial effusion or any finding which warrants returning her to the OR. I did call the OR emergently and have the CVOR on standby until she is more stable or needs to return to the OR. I suspect she had a hemodynamic spiral with low BP and relatively low coronary perfusion pressure in the face of marked LVH and now, the absence of aortic stenosis. She has become more stable in the last 15-20 minutes. If she has further compromise, I plan toplace a IABP +/-, BROOKS, and possible re-explore her. I have communicated all this with her family. 02/09 pt extubated at 0500 now on 4 liter 02, remains on Ehsan at 40mcq wean off insulin gtt , had episode of Afib, short burst VTach yesterday on amiodarone gtt, ECG shows new L BBB anteroseptal T wave changes received 2 units PRBC and one mike PLT PLT count 90. CXR with some bilateral lower lobe atelectasis , possible infiltrate left lower lobe Keep in ICU today , 02/10/18 Improving, no complaints except feeling weak. 02/11/18 c/o no appetite 02/12 still with some mild nausea went back into Afib RVR this am , amiodarone bolus given, now on 400mg bid all labs stable start lovenox, will need eliquis / fab score 3 02/13 back into afib RVR, on amiodarone gtt, BB increased mag phos TSH pending, consult cardiology add eliquis ambulate , check 2d echo 02/14 Echo low normal LV function worsening CXR / Lasix now tid check BNP in am , continue pulm toileting went back into afib / rvr, restarted on amiodarone gtt then converted again, dose of dig given continue eliquis 02/15 converted to NSR , has some bradycardia last night amiodarone changed to po daily , also on low dose dig and coreg prevena dressing removed CXR noted , has small > mod left effusion/ will recheck xray on monday if still there, may need thoracentesis 02/16 slight improvement , still in intermittent afib / mainly with coughing and exertion renal indices stable/ discussed with Dr Camp/ keep lasix TID , continue amiodarone increase digoxin f/u CXR pending on monday continue PT/OT 02/17 Clinical stable In normal sinus rhythm this morning Needs pulmonary toiletry Ambulate Repeat chest x-ray in the morning 02/18 Doing well Ambulating in D/C [facility] tomorrow 02/19 now on room air c/o of " lightning bolts across eyes intermittently " flashers, concerned, EOM and peripheral vision intact CT Brain ordered / will continue lasix , change to bid taper doses amiodarone Objective: Vital Signs - 24 hr 02/18/18 15:58 02/18/18 16:00 02/18/18 17:00 Temperature Pulse Rate 70 70 66 Respiratory Rate 18 Blood Pressure Pulse Oximetry 91 L 02/18/18 17:37 02/18/18 18:00 02/18/18 19:00 Temperature 98 F 98.4 F Pulse Rate 70 69 68 Respiratory Rate 17 20 Blood Pressure 104/61 143/63 H Pulse Oximetry 93 L 98 02/18/18 20:52 02/18/18 23:00 02/18/18 23:14 Temperature 98.6 F Pulse Rate 69 66 Respiratory Rate 16 20 Blood Pressure 122/61 Pulse Oximetry 96 96 02/18/18 23:24 02/19/18 00:00 02/19/18 01:00 Temperature Pulse Rate 60 61 61 Respiratory Rate Blood Pressure Pulse Oximetry 02/19/18 03:00 02/19/18 04:05 02/19/18 06:11 Temperature 97.9 F Pulse Rate 63 72 63 Respiratory Rate 18 16 Blood Pressure 117/58 L Pulse Oximetry 96 02/19/18 07:00 02/19/18 09:17 02/19/18 11:00 Temperature 97.9 F 98.3 F Pulse Rate 64 71 62 Respiratory Rate 13 Blood Pressure 108/74 123/63 Pulse Oximetry 92 L 93 L 92 L 02/19/18 15:32 Temperature Pulse Rate 74 Respiratory Rate 16 Blood Pressure Pulse Oximetry GENERAL: A&O x 3 SKIN: Warm and dry. sternal incision intact and well approximated HEAD: Normocephalic. EYES: No scleral icterus. No injection or drainage. NECK: Supple, trachea midline. No JVD or lymphadenopathy. CARDIOVASCULAR: Regular rate and rhythm without murmurs, gallops, or rubs. RESPIRATORY: Breath sounds equal bilaterally. No accessory muscle use. few crackles left lower base GASTROINTESTINAL: Abdomen soft, non-tender, nondistended. MUSCULOSKELETAL: No cyanosis, or edema. BACK: Nontender without obvious deformity. No CVA tenderness. Labs: Laboratory Results - last 12 hr 02/19/18 02/19/18 11:35 11:35 Sodium 136 Potassium 3.8 Chloride 92 L Carbon Dioxide 40.6 H Anion Gap 3 L BUN 14 Creatinine 1.03 H Estimated GFR 54 L Random Glucose 110 H Calcium 8.2 L Magnesium 2.1 Result Diagrams: 02/15/18 06:13 02/19/18 11:35 Telemetry: NSR - Plan (1) S/P AVR Plan: low normal EF (2) S/P CABG x 1 Plan: on ASA, statin , eliquis, BB PT/ OOB later this am pulm toileting post ECHO 02/08 EF 40% ECHO 02/13 AORTIC VALVE No aortic valve stenosis or regurgitation. low normal EF on lasix bid (4) CAD (coronary artery disease) Plan: ASA, eliquis, diuresis coreg statin (5) Diastolic heart failure Plan: continue diuresis coreg (6) Hypertension Plan: stable / start low dose BB (7) Hyperlipidemia Plan: on statin (8) Atrial fibrillation Plan: amiodarone / digoxin / dig level 0.8 eliquis (4) CAD (coronary artery disease) Qualifiers: Coronary Disease-Associated Artery/Lesion type: [place] artery (6) Hypertension Qualifiers: Hypertension type: essential hypertension Qualified Code(s): I10 - Essential (primary) hypertension (7) Hyperlipidemia Qualifiers: Hyperlipidemia type: mixed hyperlipidemia Qualified Code(s): E78.2 - Mixed hyperlipidemia
--- NOTE | 2018-02-19 17:32 | CT ---
EXAM DATE: 02/19/2018 5:23 PM EDT AGE/SEX: 67 years / Female INDICATIONS: Visual disturbances status post AVR. CLINICAL DATA: This is the patient's initial encounter. Patient reports that signs and symptoms have been present for 1 day and indicates a pain score of 0/10. MEDICAL/SURGICAL HISTORY: Carcinoma, thyroid. Hypothyroidism. Hypertension. CABG. RADIATION DOSE: 50.66 CTDI (mGy) COMPARISON: No prior exams available for comparison. TECHNIQUE: CT of the head without contrast. Using automated exposure control and adjustment of the mA and/or kV according to patient size, radiation dose was kept as low as reasonably achievable to ob tain optimal diagnostic quality images. DICOM format image data is available electronically for revi ew and comparison. FINDINGS: Cerebrum: The ventricles are normal. No midline shift, mass lesion, hemorrhage or acute infarction. No extraaxial fluid collections are seen. Posterior Fossa: The cerebellum and brainstem demonstrate no acute abnormality. The 4th ventricle is midline. The cerebellopontine angle is within normal limits. Extracranial: The visualized sinuses are clear. Skull: The calvaria is intact. No skull fracture. CONCLUSION: Negative noncontrast head CT. No abnormality is identified to explain the clinical symptoms. . Electronically signed by: Florian Ambrose MD 02/19/2018 5:31 PM EDT
[2018-02-19] MEDS: Polyethylene Glycol 3350 17 GM Packet PO SCH (19:52)
[2018-02-20 05:29] VITALS: RESP 16; O2SAT 91
[2018-02-20] MEDS: Digoxin 125 MCG Tablet PO SCH (09:36)
[2018-02-20] MEDS: Multivitamin/Minerals Therapeutic Tablet PO SCH (09:37)
[2018-02-20] MEDS: Amiodarone 200 MG Tablet PO SCH (09:37)
[2018-02-20] MEDS: Carvedilol 6.25 MG Tablet PO SCH (09:37)
--- NOTE | 2018-02-20 10:07 | P.DS ---
Date of admission: 02/08/18 05:25 Primary care physician: Frank Jacobsen MD Attending physician on discharge: Natalie Gold Brief History from admission: A 67-year-old female initially seen 02/02/18 with history of known heart murmur for a number of years, had a new primary care physician and told the nurse practitioner that she apparently had a murmur and they felt that it was more prominent so they sent her for an echocardiogram. The echocardiogram showed severe aortic stenosis with a valve mean gradient of 84 mmHg, aortic valve area 0.52, mild tricuspid valve regurgitation and mild mitral valve regurgitation. Ejection fraction is 60%. She underwent cardiac catheterization for further evaluation. The proximal LAD was 75% stenosed, the circumflex 20%. We were consulted to evaluate for coronary artery bypass graft x 1, possibly 2, with aortic valve replacement. PAST MEDICAL HISTORY: Includes hypertension, hyperlipidemia, anxiety, history of thyroid cancer. 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 DS: Diagnosis - Discharge Diagnosis (1) S/P AVR Status: Acute (2) S/P CABG x 1 Status: Acute (3) Aortic stenosis Status: Acute (4) CAD (coronary artery disease) Status: Acute (5) Diastolic heart failure Status: Chronic (6) Hypertension Status: Chronic (7) Hyperlipidemia Status: Chronic (8) Atrial fibrillation Status: Acute DS: Medications - Discharge Medications Prescriptions: amiodarone 200 mg PO Q12HR #20 tab apixaban [Eliquis] 5 mg PO BID #60 tab carvedilol [Coreg] 6.25 mg PO BID #60 tab digoxin 250 mcg PO DAILY #30 tab docusate sodium [DOK] 100 mg PO DAILY PRN #30 cap PRN Reason: constipation furosemide [Lasix] 40 mg PO DAILY #60 tab hydrocodone-acetaminophen [Friend] 1 tab PO Q4H PRN #40 tab PRN Reason: pain sntpycjx-hgvv-UL-calcium-mins [Thera M Plus (ferrous fumarat)] 1 tab PO DAILY # 30 tab potassium chloride [Klor-Con 10] 10 meq PO BID #60 tab DS: Summary Hospital Course: 02/08 pt electively admitted surgery: AVR with a 21 Intuity tissue valve, CABG x 1, SNEED to LAD, BROOKS 16:20 Called to see patient at approximately 1500 for acute hypotensive episode. She had a respiratory acidosis when she arrived from the OR which has not completely resolved. I emergently Called Dr. Du for a consultation and have been actively resuscitating her subsequently. She has required pressors and does not have a pericardial effusion or any finding which warrants returning her to the OR. I did call the OR emergently and have the CVOR on standby until she is more stable or needs to return to the OR. I suspect she had a hemodynamic spiral with low BP and relatively low coronary perfusion pressure in the face of marked LVH and now, the absence of aortic stenosis. She has become more stable in the last 15-20 minutes. If she has further compromise, I plan toplace a IABP +/-, BROOKS, and possible re-explore her. I have communicated all this with her family. 02/09 pt extubated at 0500 now on 4 liter 02, remains on Ehsan at 40mcq wean off insulin gtt , had episode of Afib, short burst VTach yesterday on amiodarone gtt, ECG shows new L BBB anteroseptal T wave changes received 2 units PRBC and one mike PLT PLT count 90. CXR with some bilateral lower lobe atelectasis , possible infiltrate left lower lobe Keep in ICU today , 02/10/18 Improving, no complaints except feeling weak. 02/11/18 c/o no appetite 02/12 still with some mild nausea went back into Afib RVR this am , amiodarone bolus given, now on 400mg bid all labs stable start lovenox, will need eliquis / fab score 3 02/13 back into afib RVR, on amiodarone gtt, BB increased mag phos TSH pending, consult cardiology add eliquis ambulate , check 2d echo 02/14 Echo low normal LV function worsening CXR / Lasix now tid check BNP in am , continue pulm toileting went back into afib / rvr, restarted on amiodarone gtt then converted again, dose of dig given continue eliquis 02/15 converted to NSR , has some bradycardia last night amiodarone changed to po daily , also on low dose dig and coreg prevena dressing removed CXR noted , has small > mod left effusion/ will recheck xray on monday if still there, may need thoracentesis 02/16 slight improvement , still in intermittent afib / mainly with coughing and exertion renal indices stable/ discussed with Dr Camp/ keep lasix TID , continue amiodarone increase digoxin f/u CXR pending on monday continue PT/OT 02/17 Clinical stable In normal sinus rhythm this morning Needs pulmonary toiletry Ambulate Repeat chest x-ray in the morning 02/18 Doing well Ambulating in D/C SNF tomorrow 02/19 now on room air c/o of " lightning bolts across eyes intermittently " flashers, concerned, EOM and peripheral vision intact CT Brain ordered / will continue lasix , change to bid taper doses amiodarone 02/20 pt stable for dc to rehab CT Brain neg has followup with Eye doctor in 2 weeks on room air - Time Spent with Patient Total time spent providing and/or coordinating discharge services: Greater than 30 minutes - Quality: VTE Deep Vein Thrombosis/Pulmonary Embolism Present on Admission: No Exam Vital signs: Vital Signs 02/19/18 10:00 02/19/18 11:00 02/19/18 12:00 Temperature 98.3 F Pulse Rate 64 66 66 Respiratory Rate Blood Pressure 123/63 Pulse Oximetry 92 L 02/19/18 13:00 02/19/18 14:00 02/19/18 15:00 Temperature 98.3 F Pulse Rate 68 66 62 Respiratory Rate Blood Pressure 105/51 L Pulse Oximetry 94 L 02/19/18 15:32 02/19/18 16:00 02/19/18 17:00 Temperature Pulse Rate 74 72 66 Respiratory Rate 16 Blood Pressure Pulse Oximetry 02/19/18 18:00 02/19/18 19:00 02/19/18 20:00 Temperature Pulse Rate 66 67 76 Respiratory Rate Blood Pressure Pulse Oximetry 02/19/18 20:12 02/19/18 21:00 02/19/18 21:23 Temperature 98.5 F Pulse Rate 64 76 67 Respiratory Rate 18 18 Blood Pressure 124/63 Pulse Oximetry 94 L 93 L 02/19/18 22:00 02/19/18 23:00 02/19/18 23:15 Temperature 98.5 F Pulse Rate 70 70 64 Respiratory Rate 18 Blood Pressure 124/63 Pulse Oximetry 94 L 02/20/18 00:00 02/20/18 01:00 02/20/18 02:00 Temperature Pulse Rate 70 64 64 Respiratory Rate Blood Pressure Pulse Oximetry 02/20/18 03:00 02/20/18 03:35 02/20/18 04:00 Temperature 97.7 F Pulse Rate 65 63 67 Respiratory Rate 16 Blood Pressure 131/64 Pulse Oximetry 91 L 02/20/18 05:00 02/20/18 06:00 Temperature Pulse Rate 66 68 Respiratory Rate Blood Pressure Pulse Oximetry Intake & Output 02/19/18 02/20/18 02/20/18 18:59 06:59 18:59 Intake Total 800 / 800 200 / 200 Output Total 800 / 800 Balance 0 / 0 200 / 200 Weight 85 kg Intake: Oral 800 / 800 200 / 200 Output: Urine 800 / 800 Other: # Voids 4 Date of Last Bowel Movement 02/19/18 - Constitutional no acute distress - Routine HEENT Exam Head: Present: normocephalic - Routine Neck Exam Present: supple, full ROM - Routine Chest/Breast/Axilla Exam Chest wall: Present: tenderness - Routine Respiratory Exam Comments: diminished in bases - Routine Cardiovascular Exam Present: RRR, S1, S2 - Routine Abdominal Exam Present: soft, normoactive bowel sounds - Routine Extremities Exam Present: full ROM, pulses intact - Routine Skin Exam Present: intact, wounds Comments: sternal incision intact and well approximated - Routine Neurological Exam Present: alert, oriented X3 Results Procedures completed during hospitalization: Date of procedure: 02/08/18 Procedure: AVR with a 21 Intuity tissue valve CABG x 1 SNEED to LAD BROOKS Implants: 21 Intuity tissue valve Completed studies during hospitalization: Pending at discharge 02/08/18 14:42 Surgical [PTH] Routine Labs on day of discharge: Labs from last 24 hours 02/19/18 02/19/18 11:35 11:35 Sodium 136 Potassium 3.8 Chloride 92 L Carbon Dioxide 40.6 H Anion Gap 3 L BUN 14 Creatinine 1.03 H Estimated GFR 54 L Random Glucose 110 H Calcium 8.2 L Magnesium 2.1 - Impressions ITS Impressions Chest X-Ray 02/18/18 06:00 CONCLUSION: Increased density seen throughout the left chest likely related to some degree of fusion. Some superimposed atelectasis or consolidation at the left base should also be considered. Suspected minimal atelectasis or consolidation at the medial right lung base. Head CT 02/19/18 00:00 CONCLUSION: Negative noncontrast head CT. No abnormality is identified to explain the clinical symptoms. . Discharge Plan - Discharge Disposition Patient Disposition: 03 Discharge to SNF - Discharge Condition Condition: Fair - Discharge Order Discharge Orders: Discharge Order (Routine); Ordered 02/20/18 Ordered By: Milli Hein - Discharge Details Anticipated Discharge Date: 02/20/18 - Physicians Team Primary Care Provider: Frank Jacobsen Attending Provider: Natalie Gold Other Providers: Lew Robles MD ; Nury Du MD ; [facility] ; Fernando Camp DO - Rxs /Orders / Referrals /Forms Prescriptions: New amiodarone 200 mg Tablet 200 mg PO Q12HR Qty: 20 RF: 0 apixaban [Eliquis] 5 mg Tablet 5 mg PO BID Qty: 60 RF: 2 carvedilol [Coreg] 6.25 mg Tablet 6.25 mg PO BID Qty: 60 RF: 2 cholecalciferol (vitamin D3) [Vitamin D3] 1,000 unit Tablet 1,000 unit PO DAILY RF: 0 digoxin 125 mcg Tablet 250 mcg PO DAILY Qty: 30 RF: 2 docusate sodium [DOK] 100 mg Capsule 100 mg PO DAILY PRN (Reason: constipation) Qty: 30 RF: 0 furosemide [Lasix] 40 mg Tablet 40 mg PO DAILY Qty: 60 RF: 1 hydrocodone-acetaminophen [Friend] 5-325 mg Tablet 1 tab PO Q4H PRN (Reason: pain) Qty: 40 RF: 0 fmcynmjr-vpru-IM-calcium-mins [Thera M Plus (ferrous fumarat)] 9 mg iron-400 mcg Tablet 1 tab PO DAILY Qty: 30 RF: 2 potassium chloride [Klor-Con 10] 10 mEq Tablet Extended Release 10 meq PO BID Qty: 60 RF: 1 Continue alprazolam 0.5 mg Tablet 0.5 mg PO BID aspirin [Aspir-81] 81 mg Tablet,Delayed Release (Dr/Ec) 81 mg PO DAILY cholecalciferol (vitamin D3) [Vitamin D3] 1,000 unit Tablet 1,000 unit PO DAILY levothyroxine 200 mcg Tablet 200 mcg PO DAILY levothyroxine 25 mcg Tablet 25 mcg PO DAILY lovastatin 20 mg Tablet 20 mg PO HS Discontinued atenolol 50 mg Tablet 50 mg PO DAILY hydrochlorothiazide 25 mg Tablet 25 mg PO DAILY potassium 99 mg Tablet mcg PO EVERY OTHER DAY Ambulatory Orders / Order Sets / DME: Echo 2D Comp with doppler (Routine) Timeframe: 2 Weeks Location: Determined by Patient Ordered By: Milli Hein XR chest 2V PA&LAT (Routine) Timeframe: 2 Days Location: Determined by Patient Ordered By: Milli Hein Basic Metabolic Panel (Routine) Timeframe: 2 Weeks Location: Determined by Patient Ordered By: Milli Hein Complete Blood Count NO Diff (Routine) Timeframe: 2 Weeks Location: Determined by Patient Ordered By: Milli Hein Digoxin (Routine) Timeframe: 2 Weeks Location: Determined by Patient Ordered By: Milli Hein Referrals: CYNDI ANDERSON DR [Other] - See Instructions ( Your appointment has been scheduled for [02/22/18] at [10:30 am] If you cannot make this appointment, please call the office to reschedule ) Milli Hein [ADVANCE RN PRACTITIONER] - See Instructions ( Your appointment has been scheduled for [03/01/18] at [11:00 am] If you cannot make this appointment, please call the office to reschedule ) Lew Robles MD [Physician] - See Instructions ( Your appointment has been scheduled for [03/15/18] at [3:00 pm] If you cannot make this appointment, please call the office to reschedule ) - Discharge Instructions Patient Printed Instructions: Coronary Artery Bypass Graft (DC) Additional Instructions: PREVENA Single Use Negative Wound Therapy System Caregiver Instruction Sheet 1. A Prevena dressing system was applied to the chest incision during surgery , to promote wound healing. It works via a suction device (negative pressure wound therapy) to remove low to moderate levels of exudate (drainage) and infectious materials. We recommend that the device stay in place for up to seven days, from day of surgery. 2. Day of Surgery__02/08/18 Day of Removal ___02/15/18 3. The dressing should only be removed by a health manager home healthcare. Please arrange removal of device to coincide with Home Health visit and or with Nursing staff at Rehab 4. If skin reddening or irritation of skin occurs, or excessive drainage, please notify the Cardiovascular Surgeons office at [phone]. 5. Light showering is permissible; however the pump should be disconnected and placed in safe location, where it will not get wet. The dressing should not be exposed to direct spray or submerged in water. No bath tub / shower only. Ensure the end of the tubing attached to the dressing is facing down so that water does not enter the top of the tube. 6. To remove Prevena dressing: press purple button to turn off device / remove the suction. Then disconnect the tubing from the pump. The fixation strips should be stretched away from the skin and the dressing lifted at one corner and peeled back until it has been fully removed. 7. After removal, it is ok to shower daily using liquid dial soap and clean wash cloth, rinse and pat dry, and leave incision open to air dry. For any concerns regarding Prevena dressing, and or wounds, please contact Alina Kraft, patient navigator at [phone] or notify the Cardiovascular Surgeons office at [phone]. Incentive spirometry Q1 hr x 10, while awake, also use acapella device hourly whole awake Sternal Breast Bone Precautions: NO pushing or pulling, ( pt must use sternal pillow to support chest with all activities and with coughing ( takes up to 3 months breast bone to heal ) Daily incision care: ok to shower daily, no tub bath. Wash all incisions with liquid dial soap, clean wash cloth to each site, rinse and pat dry. Observe for any signs of infection, such as drainage which is dark yellow, silva, green or foul smelling. Immediately report to the surgeon any drainage from the chest incision, or legs, and for any abnormal drainage from the chest tube sites. Notify surgeon if any temp >101.5 degrees F. When specialty dressing removed/ or if you do not have one, continue to shower daily as above, then rinse and pat incision dry and paint with betadine daily x 5 days. Allow steri strips to fall off if you have any. Avoid lotions, creams, salves, oils, etc. for the first month Please see attached forms for additional instructions regarding post Open Heart specialty wound vacuum dressings. ALEXANDRA or Prevena , Dressing to be removed by Nursing staff on __8/16/[address] Gold patients , please obtain CBC, BMP, PA & Lat CXR in 2 weeks, results to Dr. Gold ( prescription will be given) ( ) (Tele: [phone]) , Valve replacement pts will need 2decho in 2 weeks with results to Dr. Gold . Please obtain 2 d echo at your tactical intelligence officer office if possible F/U appointment: as per DC instructions: PCP in 2 weeks, CV surgeon 2 weeks, [facility] 3-4 weeks For any questions regarding incisions/ dressing / meds / post op care or above Symptoms, Monday 8am-5pm Heart & Vascular Surgery Office ( Dr. Benítez & Dr. Gold), After Hours / Nights (5pm -8am) Weekends and Holidays Please call [facility] ([facility]) Charge Nurse - Post Discharge Care Plan Care Plan Goals: 2D ECHOCARDIOGRAM SCHEDULED FOR 02/28/18 AT 12:[address] [address] YOUR CO-PAY WITH BE $10
[2018-02-20 21:01] VITALS: BP 126/66; TEMP 98.6
[2018-02-20 21:04] VITALS: PULSE 68
== END 2018-02-20 12:55 ==
LOC: HSDI 05:25 → HCVI 14:02 → HCPC 02-10 14:11
PROVIDERS: ADMIT Thoracic Surgery (Cardiothoracic Vascular Surgery); ATTEND Thoracic Surgery (Cardiothoracic Vascular Surgery)